=== PATIENT | female | born 1970 | race Two or more races ===

== ENCOUNTER 2016-10-19 11:40 | Emergency (ER) | payer OTHER ==
[2016-10-19 12:06] VITALS: BP 138/84; PULSE 76; TEMP 98; BMI 35.6
--- NOTE | 2016-10-19 14:23 | PDOC ---
History of Present Illness - General Chief Complaint: Eye Problem Stated Complaint: LT EYE SWOLLEN Time Seen by Provider: 10/19/16 13:51 History Source: Patient - History of Present Illness Timing/Duration: other Associated Symptoms: denies: fever/chills, headaches Past History - Past Medical History Allergies/Adverse Reactions: Allergies Allergy/AdvReac Type Severity Reaction Status Date / Time Penicillins Allergy Verified 10/19/16 12:06 Home Medications: Ambulatory Orders Fluconazole [Diflucan -] 100 mg PO DAILY 08/11/15 Insulin Aspart [Novolog] 15 units SQ TID 08/11/15 Insulin Glargine,Hum.rec.anlog [Lantus (10mL VIAL) -] 35 units SQ HS 08/11/15 Aspirin [ASA -] 81 mg PO DAILY tab.chew 08/12/15 Losartan Potassium [Cozaar -] 50 mg PO DAILY 11/12/15 Meclizine HCl [Antivert -] 25 mg PO TID PRN 11/12/15 Sulfamethoxazole/Trimethoprim [Bactrim Ds -] 1 tab PO BID #14 tablet 11/13/15 Levofloxacin [Levaquin -] 500 mg PO DAILY #7 tablet 06/15/16 Sulfamethoxazole/Trimethoprim [Bactrim Ds -] 1 tab PO BID #14 tablet 06/15/16 Nitrofurantoin Monohyd/M-Cryst [Macrobid -] 100 mg PO BID #14 capsule 07/21/16 Dextran 70/Hypromellose [Artificial Tears] 1 - 2 each OS ASDIR PRN #1 droperette 10/19/16 Diphenhydramine HCl [Benadryl -] 25 mg PO Q6H #28 capsule 10/19/16 Asthma: Yes Diabetes: Yes HTN: Yes Hypercholesterolemia: Yes Suicide Attempt (Hx): No - Immunization History Immunization Up to Date: Yes - Psycho/Social/Smoking Cessation Hx Anxiety: No Suicidal Ideation: No Smoking History: Never smoked Have you smoked in the past 12 months: No Number of Cigarettes Smoked Daily: 0 If you are a former smoker, when did you quit?: 3 YEARS Cigars Per Day: 0 Information on smoking cessation initiated: No Hx Alcohol Use: No Drug/Substance Use Hx: No Substance Use Type: None Hx Substance Use Treatment: No Review of Systems - Review of Systems Constitutional: No: Fever HEENTM: No: Eye Pain, Blurred Vision, Tearing, Nose Congestion, Throat Pain Respiratory: No: Cough *Physical Exam - Vital Signs Last Vital Signs Temp Pulse Resp BP Pulse Ox 98 F 76 18 138/84 99 10/19/16 12:02 10/19/16 12:02 10/19/16 12:02 10/19/16 12:02 10/19/16 12:02 - Physical Exam General Appearance: Yes: Appropriately Dressed. No: Apparent Distress HEENT: positive: Normal Voice, Other (minimal periorbital edema without erythema or incr warmth, mild conjunc injection, no gross fb, lid lesions, tearing or discharge) Neck: positive: Supple. negative: Lymphadenopathy (R), Lymphadenopathy (L) Respiratory/Chest: negative: Respiratory Distress Integumentary: positive: Dry, Warm Neurologic: positive: Fully Oriented, Alert, Normal Mood/Affect Medical Decision Making - Medical Decision Making 10/19/16 14:18 46 yo F, h/o NIDDM w/ controlled here with L eyelid periorbital swelling and itching since yesterday. No conjunctival erythema, discharge, tearing or visual changes. No contact lens use. No sick contacts. Using otc eye drops w/ no relief. See exa, Allergic conjuntivitis Has mild conjunctival injection on exam w/ L periorbital edema c/l allergy, no s /o infxn at this time -Dc w/ basic eye care including cool compressess, artificial tears, benadryl and instruction to not rub eyes -Return precaution given 10/19/16 14:29 *DC/Admit/Observation/Transfer Diagnosis at time of Disposition: Allergic conjunctivitis Qualifiers: Laterality: left Qualified Code(s): H10.12 - Acute atopic conjunctivitis, left eye - Discharge Dispostion Disposition: HOME Condition at time of disposition: Good - Prescriptions Prescriptions: Dextran 70/Hypromellose [Artificial Tears] 1 - 2 each OS ASDIR PRN #1 droperette PRN Reason: Dry Eyes Diphenhydramine HCl [Benadryl -] 25 mg PO Q6H #28 capsule - Patient Instructions Printed Discharge Instructions: DI for Conjunctivitis Additional Instructions: Take medications as directed. Return for worsening of symptoms Do not rub eyes as it can worsen symptoms
== END 2016-10-19 14:31 | disposition home or self-care (01) ==
LOC: JERFT 11:40 → EDSEX 11:40 → JERFT 14:31
DX: H10.12 Acute atopic conjunctivitis, left eye (principal); I10 Essential (primary) hypertension; E11.9 Type 2 diabetes mellitus without complications; Z79.4 Long term (current) use of insulin; E78.00 Pure hypercholesterolemia, unspecified; J45.909 Unspecified asthma, uncomplicated
CPT/HCPCS: 99281-25

== ENCOUNTER 2017-01-03 20:04 | Emergency (ER) | payer OTHER ==
[2017-01-03 20:09] VITALS: BP 160/99; BMI 34.3
[2017-01-03] MEDS ORDERED: KETOROLAC TROMETHAMINE 30 MG/1 ML VIAL IVPUSH ONE (20:32)
[2017-01-03] MEDS ORDERED: morphine CARPU-JECT 4 MG/1 ML DISP.SYRIN IVPUSH ONE (20:32)
[2017-01-03] MEDS ORDERED: ONDANSETRON 4 MG/2 ML VIAL IVPUSH ONE (20:32)
[2017-01-03] MEDS ORDERED: KETOROLAC TROMETHAMINE 30 MG/1 ML VIAL ONE (20:36)
[2017-01-03] MEDS ORDERED: ONDANSETRON 4 MG/2 ML VIAL ONE (20:36)
[2017-01-03] MEDS ORDERED: morphine CARPU-JECT 4 MG/1 ML DISP.SYRIN ONE (20:36)
[2017-01-03] MEDS ORDERED: SODIUM CHLORIDE 0.9% 500 ML INFUS.BAG IV ONE (20:37)
--- NOTE | 2017-01-03 20:38 | PDOC ---
History of Present Illness - History of Present Illness Initial Comments: 01/03/17 20:51 Patient is a 46 year old female with significant medical hx of asthma, DM, HTN, and HLD who is presenting to the ED with nausea, suprapubic pain and lower back pain since yesterday. The patient endorses two episodes of vomiting today. Patient is standing uncomfortably over the bed stating she is in too much pain to sit down. The patient suspects she has a UTI; she reports using pyridium in the past without any relief. Denies fever, chills, and hx of nephrolithiasis. <Iliana Nair - Last Filed: 01/03/17 21:31> <Manoj Castro - Last Filed: 01/03/17 22:10> - General Chief Complaint: Pain, Acute Stated Complaint: ABDOMINAL PAIN Past History <Iliana Nair - Last Filed: 01/03/17 21:31> - Past Medical History Asthma: Yes Diabetes: Yes HTN: Yes Hypercholesterolemia: Yes Suicide Attempt (Hx): No - Immunization History Immunization Up to Date: Yes - Psycho/Social/Smoking Cessation Hx Anxiety: No Suicidal Ideation: No Smoking History: Never smoked Have you smoked in the past 12 months: No Number of Cigarettes Smoked Daily: 0 If you are a former smoker, when did you quit?: 3 YEARS Cigars Per Day: 0 Information on smoking cessation initiated: No Hx Alcohol Use: No Drug/Substance Use Hx: No Substance Use Type: None Hx Substance Use Treatment: No <Manoj Castro - Last Filed: 01/03/17 22:10> - Past Medical History Allergies/Adverse Reactions: Allergies Allergy/AdvReac Type Severity Reaction Status Date / Time Penicillins Allergy Verified 01/03/17 20:07 Home Medications: Ambulatory Orders Insulin Aspart [Novolog] 15 units SQ TID 08/11/15 Insulin Glargine,Hum.rec.anlog [Lantus (10mL VIAL) -] 35 units SQ HS 08/11/15 Aspirin [ASA -] 81 mg PO DAILY tab.chew 08/12/15 Losartan Potassium [Cozaar -] 50 mg PO DAILY 11/12/15 Meclizine HCl [Antivert -] 25 mg PO TID PRN 11/12/15 Ibuprofen 800 mg PO TID PRN #30 tablet 01/03/17 Ondansetron [Zofran *Odt*] 8 mg SL TID PRN #30 od.tablet 01/03/17 Sulfamethoxazole/Trimethoprim [Bactrim Ds -] 1 tab PO BID #14 tablet 01/03/17 Review of Systems - Review of Systems Comments:: 01/03/17 20:52 GENERAL/CONSTITUTIONAL: No fever or chills. No weakness. HEAD, EYES, EARS, NOSE AND THROAT: No change in vision. No ear pain or discharge. No sore throat. CARDIOVASCULAR: No chest pain or shortness of breath. RESPIRATORY: No cough, wheezing, or hemoptysis. GASTROINTESTINAL: Suprapubic pain, nasuea, vomiting. No diarrhea or constipation. GENITOURINARY: No dysuria, frequency, or change in urination. MUSCULOSKELETAL: Lower back pain. No joint or muscle swelling or pain. No neck pain. SKIN: No rash NEUROLOGIC: No headache, vertigo, loss of consciousness, or change in strength/ sensation. <Iliana Nair - Last Filed: 01/03/17 21:31> *Physical Exam - Vital Signs Last Vital Signs Temp Pulse Resp BP Pulse Ox 95 H 18 160/99 99 01/03/17 20:07 01/03/17 20:07 01/03/17 20:07 01/03/17 20:07 - Physical Exam Comments: 01/03/17 21:31 GENERAL: Awake, alert, and fully oriented, in no acute distress HEAD: No signs of trauma EYES: PERRLA, EOMI, sclera anicteric, conjunctiva clear ENT: Auricles normal inspection, hearing grossly normal, nares patent, oropharynx clear without exudates. Moist mucosa NECK: Normal ROM, supple, no lymphadenopathy, JVD, or masses LUNGS: Breath sounds equal, clear to auscultation bilaterally. No wheezes, and no crackles HEART: Regular rate and rhythm, normal S1 and S2, no murmurs, rubs or gallops ABDOMEN: No suprapubic tenderness upon palpation. Soft, nontender, normoactive bowel sounds. No guarding, no rebound. No masses EXTREMITIES: Normal range of motion, no edema. No clubbing or cyanosis. No cords, erythema, or tenderness NEUROLOGICAL: Cranial nerves II through XII grossly intact. Normal speech, normal gait SKIN: Warm, Dry, normal turgor, no rashes or lesions noted. ENDOCRINE: No increased thirst. No abnormal weight change. HEMATOLOGIC/LYMPHATIC: No anemia, easy bleeding, or history of blood clots. ALLERGIC/IMMUNOLOGIC: No hives or skin allergy. <Iliana Nair - Last Filed: 01/03/17 21:31> - Vital Signs Last Vital Signs Temp Pulse Resp BP Pulse Ox 95 H 18 160/99 99 01/03/17 20:07 01/03/17 20:07 01/03/17 20:07 01/03/17 20:07 <Manoj Castro - Last Filed: 01/03/17 22:10> ED Treatment Course - LABORATORY CBC & Chemistry Diagram: 01/03/17 20:50 01/03/17 20:50 <Iliana Nair - Last Filed: 01/03/17 21:31> - LABORATORY CBC & Chemistry Diagram: 01/03/17 20:50 01/03/17 20:50 <Manoj Castro - Last Filed: 01/03/17 22:10> Medical Decision Making - Medical Decision Making 01/03/17 22:04 This is a 46yo F with h/o recurrent UTI's who presents with pain in the lower abdomen/suprapubic area which she indicates is identical to her experience with UTI's. No constitutional symptoms are reported and there is significant amount of pain. She is given analgesia, antiemetics, fluids; UTI demonstrated on UA; will send culture. Given Rx for bactrim DS, pyridium, Zofran, and encourage follow up with the urologist for maintenance. <Manoj Castro - Last Filed: 01/03/17 22:10> *DC/Admit/Observation/Transfer - Attestations Scribe Attestion: 01/03/17 20:53 Documentation prepared by Iliana Nair, acting as medical office specialist for Manoj Castro MD. <Iliana Nair - Last Filed: 01/03/17 21:31> - Discharge Dispostion Admit: No Decision to Admit order Date/Time: 01/03/17 22:07 <Manoj Castro - Last Filed: 01/03/17 22:10> Diagnosis at time of Disposition: UTI (urinary tract infection) Qualifiers: Urinary tract infection type: acute cystitis Hematuria presence: with hematuria Qualified Code(s): N30.01 - Acute cystitis with hematuria - Discharge Dispostion Disposition: HOME Condition at time of disposition: Good - Prescriptions Prescriptions: Sulfamethoxazole/Trimethoprim [Bactrim Ds -] 1 tab PO BID #14 tablet Ibuprofen 800 mg PO TID PRN #30 tablet PRN Reason: Pain Ondansetron [Zofran *Odt*] 8 mg SL TID PRN #30 od.tablet PRN Reason: Nausea - Referrals Referrals: STAFF,NOT ON [Primary Care Provider] - - Patient Instructions Additional Instructions: Please follow up with your PMD within the next 24 hours and if there is any change otherwise in your symptoms, please return immediately to the ED. Also, follow up with the urologist would be appropriate as well.
[2017-01-03 20:53] LABS: BASOPHIL 0.7 % (0-2.0); EOSINOPHIL 1.9 % (0-4.5); MCHC 34.4 g/dl (32.0-36.0); MEAN CELL VOLUME 87.3 fl (80-96); MEAN PLT VOLUME 8.7 fl (7.5-11.1); NEUTROPHILS 55.5 % (42.8-82.8); PLATELET COUNT 230 K/MM3 (134-434); RDW 13.9 % (11.6-15.6); WHITE BLOOD COUNT 9.4 K/mm3 (4.0-10.0)
[2017-01-03 21:06] LABS: INR 1.02 (0.82-1.09); PROTHROMBIN TIME (PATIENT) 11.2 SEC (9.98-11.88)
[2017-01-03 21:13] LABS: MAGNESIUM 1.9 mg/dL (1.8-2.4); PHOSPHOROUS 3.2 mg/dL (2.5-4.9)
[2017-01-03 21:14] LABS: ALBUMIN 3.6 g/dl (3.4-5.0); ANION GAP 8 (8-16); BILIRUBIN,TOTAL 0.2 mg/dL (0.2-1.0); CALCIUM 8.5 mg/dL (8.5-10.1); CO2 24 mmol/L (21-32); CREATININE 0.9 mg/dL (0.55-1.02); GLUCOSE,RANDOM 99 mg/dL (74-106); SGOT/AST 30 U/L (15-37); SGPT/ALT 55 U/L (12-78); TOT PROT 7.1 g/dl (6.4-8.2)
[2017-01-03 21:15] LABS: ALK PHOS 112 U/L (45-117)
[2017-01-03 21:19] LABS: URINE APPEARANCE CLOUDY; URINE BILIRUBIN NEGATIVE (NEGATIVE); URINE BLOOD NEGATIVE (NEGATIVE); URINE COLOR LTYELLOW; URINE GLUCOSE (UA) NEGATIVE (NEGATIVE); URINE KETONE NEGATIVE (NEGATIVE); URINE NITRITE NEGATIVE (NEGATIVE); URINE UROBILINOGEN NEGATIVE E.U./dl (0.2-1.0)
[2017-01-03 21:26] LABS: URINE LEUK ESTERASE 3+ (NEGATIVE); URINE PROTEIN 1+ (NEGATIVE)
[2017-01-03 21:33] LABS: URINE BACTERIA RARE /hpf (NONE SEEN); URINE MUCUS RARE; URINE RBC 8 /hpf (0-3); URINE WBC 766 /hpf (3-5); YEAST FEW
[2017-01-03] MEDS ORDERED: SULFAMETHOXAZOLE/TRIMETHOPRIM 800MG/160MG D.S. TABLET PO ONE ×2 (22:03→22:06)
[2017-01-03] MEDS ORDERED: PHENAZOPYRIDINE HCL 100 MG TABLET (FP) PO ONE (22:03)
[2017-01-03] MEDS ORDERED: PHENAZOPYRIDINE HCL 100 MG TABLET (FP) ONE (22:08)
[2017-01-03] MEDS ORDERED: SULFAMETHOXAZOLE/TRIMETHOPRIM 800MG/160MG D.S. TABLET ONE (22:08)
[2017-01-03 22:42] VITALS: PULSE 92
== END 2017-01-03 22:42 | disposition home or self-care (01) ==
LOC: JER 20:04
PROC: 3E033NZ Introduction of Analgesics, Hypnotics, Sedatives into Peripheral Vein, Percutaneous Approach (ICD-10-PCS; principal; 2017-01-03)
PROC: 3E0333Z Introduction of Anti-inflammatory into Peripheral Vein, Percutaneous Approach (ICD-10-PCS; 2017-01-03)
PROC: 3E033GC Introduction of Other Therapeutic Substance into Peripheral Vein, Percutaneous Approach (ICD-10-PCS; 2017-01-03)
DX: N30.01 Acute cystitis with hematuria (principal); I10 Essential (primary) hypertension; E11.9 Type 2 diabetes mellitus without complications; Z79.4 Long term (current) use of insulin; E78.00 Pure hypercholesterolemia, unspecified; J45.909 Unspecified asthma, uncomplicated
CPT/HCPCS: 36415; 80053; 81003; 81015; 83605; 83735; 84100; 84703; 85025; 85610; 87040; 87086; 96374; 96375; 99283-25

== ENCOUNTER 2017-07-13 19:49 | Emergency (ER) | payer OTHER ==
[2017-07-13 20:00] VITALS: BP 160/100; PULSE 129; TEMP 99.2; BMI 39.4
[2017-07-13] MEDS ORDERED: SODIUM CHLORIDE 0.9% 500 ML INFUS.BAG IV ONE (22:02)
[2017-07-13] MEDS ORDERED: LOPERAMIDE HCL 1 MG/5 ML UNIT DOSE CUP PO ONE (22:26)
[2017-07-13] MEDS ORDERED: PANTOPRAZOLE SODIUM 40 MG in SODIUM CHLORIDE 100 ML IVPB ONE (22:26)
[2017-07-13] MEDS ORDERED: MAG HYDROX/AL HYDROX/SIMETH 355 ML ORAL.SUSP PO ONE (22:26)
[2017-07-13] MEDS ORDERED: FAMOTIDINE 20 MG/50 ML IVPB 50 ML IVPB ONE ×2 (22:26→22:39)
[2017-07-13] MEDS ORDERED: ONDANSETRON 4 MG/2 ML VIAL IVPUSH ONE (22:26)
[2017-07-13] MEDS ORDERED: PANTOPRAZOLE SODIUM 100 ML IVPB ONE (22:38)
[2017-07-13 22:39] LABS: BASOPHIL 0.6 % (0-2.0); EOSINOPHIL 0.1 % (0-4.5); MCH 30.8 pg (25.7-33.7); MEAN CELL VOLUME 90.6 fl (80-96); NEUTROPHILS 84.3 % (42.8-82.8); PLATELET COUNT 273 K/MM3 (134-434); RDW 13.2 % (11.6-15.6); WHITE BLOOD COUNT 11.6 K/mm3 (4.0-10.0)
[2017-07-13] MEDS ORDERED: MAG HYDROX/AL HYDROX/SIMETH 30 ML UNIT-DOSE CUP ONE (22:39)
[2017-07-13] MEDS ORDERED: ONDANSETRON 4 MG/2 ML VIAL ONE (22:39)
--- NOTE | 2017-07-13 23:01 | PDOC ---
History of Present Illness - General Chief Complaint: Nausea/Vomiting Stated Complaint: COLD SYMPTOMS Time Seen by Provider: 07/13/17 21:51 - History of Present Illness Initial Comments: 07/13/17 23:01 CHIEF COMPLAINT: HISTORY OF PRESENT ILLNESS: 47 yo F with PMH of asthma, insulin dependent DM, HTN, and HLD presents to ED with vomiting and diarrhea since this morning. Patient reports that she "ate cheese like I do every morning", but shortly after she began vomiting persistently with persistent diarrhea, "I lost count how many times I went after 2 hours." She states that her bowels were like water and her last BM was around 6 pm today. She denies any fever or chills, denies any chest pain or shortness of breath. She reports feeling a "burning" sensation to throat as well as discomfort in the epigastric area. No recent travel or sick contacts. PAST MEDICAL HISTORY: Denies past medical history FAMILY HISTORY: Denies SOCIAL HISTORY: Denies tobacco, alcohol, illicit drug use. SURGICAL HISTORY: Denies ALLERGIES: PCN REVIEW OF SYSTEMS General/Constitutional: Denies fever or chills. Denies weakness, weight change. HEENT: Denies change in vision. Denies ear pain or discharge. Denies sore throat. Cardiovascular: Denies chest pain or shortness of breath. Respiratory: Denies cough, wheezing, or hemoptysis. Gastrointestinal: Denies nausea, vomiting, diarrhea or constipation. Denies rectal bleeding. Genitourinary: Denies dysuria, frequency, or change in urination. Musculoskeletal: Denies joint or muscle swelling or pain. Denies neck or back pain. Skin and breasts: Denies rash or easy bruising. Neurologic: Denies headache, vertigo, loss of consciousness, or loss of sensation. PHYSICAL EXAM General Appearance: Well-appearing, appropriately dressed. No apparent distress , no intoxication. HEENT: EOMI, PERRLA, normal ENT inspection, normal voice, TMs normal, pharynx normal. No conjunctival pallor. No photophobia, scleral icterus. Neck: Supple. Trachea midline. No tenderness, rigidity, carotid bruit, stridor , lymphadenopathy, or thyromegaly. Respiratory/Chest: Lungs CTAB. No shortness of breath, chest tenderness, respiratory distress, accessory muscle use. No crackles, rales, rhonchi, stridor , wheezing, dullness Cardiovascular: RRR. S1, S2. No JVD, murmur, bradycardia, tachycardia. Vascular Pulses: Dorsalis-Pedis (R): 2+, Dorsalis-Pedis (L): 2+ Gastrointestinal/Abdominal: mild epigastric TTP. Normal bowel sounds. Abdomen soft, non-distended. No tenderness or rebound tenderness. No organomegaly, pulsatile mass, guarding, hernia, hepatomegaly, splenomegaly. Lymphatic: No adenopathy, tenderness. Musculoskeletal/Extremities: Normal inspection. FROM of all extremities, normal capillary refill. Pelvis Stable. No CVA tenderness. No tenderness to extremities, pedal edema, swelling, erythema or deformity. Integumentary: Appropriate color, dry, warm. No cyanosis, erythema, jaundice or rash Neurologic: riprap placer II-XII intact. Fully oriented, alert. Appropriate mood/affect. Motor strength 5/5. No appreciable EOM palsy, facial droop or sensory deficit. Past History - Past Medical History Allergies/Adverse Reactions: Allergies Allergy/AdvReac Type Severity Reaction Status Date / Time Penicillins Allergy Verified 07/13/17 19:55 Home Medications: Ambulatory Orders Insulin Aspart [Novolog] 15 units SQ TID 08/11/15 Insulin Glargine,Hum.rec.anlog [Lantus (10mL VIAL) -] 35 units SQ HS 08/11/15 Losartan Potassium [Cozaar -] 50 mg PO DAILY 11/12/15 Meclizine HCl [Antivert -] 25 mg PO TID PRN 11/12/15 Ibuprofen 800 mg PO TID PRN #30 tablet 01/03/17 Salmeterol/Fluticasone [Advair 100Mcg/50Mcg -] 1 inh PO BID 07/13/17 Loperamide HCl/Simethicone [Imodium Multi-Symptom Rel Cplt] 1 each PO BID PRN # 8 tablet 07/14/17 Nitrofurantoin Monohyd/M-Cryst [Macrobid -] 100 mg PO BID #14 capsule 07/14/17 Asthma: Yes Diabetes: Yes HTN: Yes Hypercholesterolemia: Yes - Immunization History Immunization Up to Date: Yes - Suicide/Smoking/Psychosocial Hx Smoking History: Never smoked Have you smoked in the past 12 months: No Number of Cigarettes Smoked Daily: 0 If you are a former smoker, when did you quit?: 3 YEARS Cigars Per Day: 0 Information on smoking cessation initiated: No Hx Alcohol Use: No Drug/Substance Use Hx: No Substance Use Type: None Hx Substance Use Treatment: No *Physical Exam - Vital Signs Last Vital Signs Temp Pulse Resp BP Pulse Ox 99.2 F 129 H 18 160/100 98 07/13/17 19:54 07/13/17 19:54 07/13/17 19:54 07/13/17 19:54 07/13/17 19:54 ED Treatment Course - LABORATORY CBC & Chemistry Diagram: 07/13/17 22:26 07/13/17 22:26 - ADDITIONAL ORDERS Additional order review: 07/13/17 22:26 RBC 5.00 MCV 90.6 MCHC 34.0 RDW 13.2 MPV 9.0 Neutrophils % 84.3 H D Lymphocytes % 11.9 D Monocytes % 3.1 L Eosinophils % 0.1 D Basophils % 0.6 - Medications Given in the ED: ED Medications Discontinued Medications Generic Name Dose Route Start Last Admin Trade Name Nick PRN Reason Stop Dose Admin Al Hydroxide/Mg Hydroxide 30 ml 07/13/17 22:26 07/13/17 22:46 Mylanta Suspension - PO 07/13/17 22:27 30 ml ONCE ONE Administration Pantoprazole Sodium 40 mg/ 100 mls @ 200 mls/hr 07/13/17 22:26 07/13/17 22:47 Sodium Chloride IVPB 07/13/17 22:55 200 mls/hr ONCE ONE Administration Famotidine/Sodium Chloride 50 mls @ 100 mls/hr 07/13/17 22:26 07/13/17 22:47 Pepcid 20 Mg Premixed Ivpb - IVPB 07/13/17 22:55 100 mls/hr ONCE ONE Administration Ondansetron HCl 8 mg 07/13/17 22:26 07/13/17 22:47 Zofran Injection IVPUSH 07/13/17 22:27 8 mg ONCE ONE Administration Sodium Chloride 1,000 ml 07/13/17 22:02 07/13/17 22:35 Normal Saline - IV 07/13/17 22:03 1,000 ml ONCE ONE Administration Medical Decision Making - Medical Decision Making 07/13/17 23:05 47 yo F with PMH of asthma, insulin dependent DM, HTN, and HLD presents to ED with vomiting and diarrhea since this morning. -CBC, CMP, lipase -IVF, NPO, Maalox, loperamide, Pepcid, Protonix *DC/Admit/Observation/Transfer Diagnosis at time of Disposition: UTI (urinary tract infection) Qualifiers: Urinary tract infection type: site unspecified Hematuria presence: with hematuria Qualified Code(s): N39.0 - Urinary tract infection, site not specified - Discharge Dispostion Disposition: HOME Admit: No - Prescriptions Prescriptions: Loperamide HCl/Simethicone [Imodium Multi-Symptom Rel Cplt] 1 each PO BID PRN # 8 tablet PRN Reason: Diarrhea Nitrofurantoin Monohyd/M-Cryst [Macrobid -] 100 mg PO BID #14 capsule - Referrals Referrals: Deandre Saldivar STDNT [Primary Care Provider] - - Patient Instructions Additional Instructions: Please take medications as prescribed and follow up with your primary care doctor by the end of the week. If you develop any fever, chills, or your vomiting and diarrhea persist for more than the next 24 hours, please return to the ER.
[2017-07-13 23:23] LABS: ALBUMIN 3.9 g/dl (3.4-5.0); ALK PHOS 119 U/L (45-117); ANION GAP 10 (8-16); BILIRUBIN,TOTAL 0.6 mg/dL (0.2-1.0); CALCIUM 9.1 mg/dL (8.5-10.1); CO2 22 mmol/L (21-32); CREATININE 0.9 mg/dL (0.55-1.02); GLUCOSE,RANDOM 112 mg/dL (74-106); SGOT/AST 48 U/L (15-37); SGPT/ALT 70 U/L (12-78); TOT PROT 8.3 g/dl (6.4-8.2)
[2017-07-13 23:30] LABS: URINE APPEARANCE CLOUDY; URINE BILIRUBIN NEGATIVE (NEGATIVE); URINE BLOOD 2+ (NEGATIVE); URINE COLOR YELLOW; URINE GLUCOSE (UA) NEGATIVE (NEGATIVE); URINE KETONE NEGATIVE (NEGATIVE); URINE NITRITE POSITIVE (NEGATIVE); URINE PROTEIN NEGATIVE (NEGATIVE); URINE UROBILINOGEN NEGATIVE mg/dL (0.2-1.0)
[2017-07-13 23:34] LABS: URINE LEUK ESTERASE 3+ (NEGATIVE)
[2017-07-13 23:36] LABS: URINE MUCUS RARE; URINE RBC 6 /hpf (0-3); URINE WBC 209 /hpf (3-5)
[2017-07-13] MEDS ORDERED: CIPROFLOXACIN 400 MG/D5W 200 ML IVPB ONE (23:54)
== END 2017-07-14 02:45 | disposition home or self-care (01) ==
LOC: JER 19:49
PROC: 3E033GC Introduction of Other Therapeutic Substance into Peripheral Vein, Percutaneous Approach (ICD-10-PCS; principal; 2017-07-13)
PROC: 3E033GC Introduction of Other Therapeutic Substance into Peripheral Vein, Percutaneous Approach (ICD-10-PCS; 2017-07-13)
PROC: 3E03329 Introduction of Other Anti-infective into Peripheral Vein, Percutaneous Approach (ICD-10-PCS; 2017-07-13)
PROC: 3E033GC Introduction of Other Therapeutic Substance into Peripheral Vein, Percutaneous Approach (ICD-10-PCS; 2017-07-13)
DX: N39.0 Urinary tract infection, site not specified (principal); B96.89 Other specified bacterial agents as the cause of diseases classified elsewhere; I10 Essential (primary) hypertension; E78.00 Pure hypercholesterolemia, unspecified; E10.9 Type 1 diabetes mellitus without complications; Z79.4 Long term (current) use of insulin; J45.909 Unspecified asthma, uncomplicated
CPT/HCPCS: 36415; 80053; 81003; 81015; 83605; 83690; 84703; 85025; 87086; 87186; 99283-25

== ENCOUNTER → 2017-10-22 | Emergency (ER) | payer OTHER ==
[~2017-10-22] MED LIST: ACETAMINOPHEN 325 MG TABLET (FP) ONE; ACETAMINOPHEN 325 MG TABLET (FP) PO ONE; MECLIZINE HCL 25 MG TABLET (FP) ONE; MECLIZINE HCL 25 MG TABLET (FP) PO ONE
[2017-10-22 20:58] VITALS: BP 155/112; PULSE 90; TEMP 97.6; BMI 36.6
--- NOTE | 2017-10-22 20:59 | PDOC ---
Rapid Medical Evaluation Chief Complaint: Injury Time Seen by Provider: 10/22/17 20:57 Medical Evaluation: Allergies Allergy/AdvReac Type Severity Reaction Status Date / Time Penicillins Allergy Verified 07/13/17 19:55 Vital Signs Temp Pulse Resp BP Pulse Ox 97.6 F 90 18 155/112 99 10/22/17 20:55 10/22/17 20:55 10/22/17 20:55 10/22/17 20:55 10/22/17 20:55 10/22/17 20:58 I have performed a brief in -person evaluation of this patient. The patient presents with a chief complaint of: S/P SLIPPED AND FELL X3D AGO. C/ O paravertebral neck/right wrist pain. Denies preg. refuses upreg Pertinent physical exam findings: neg midline neck pain I have ordered the following: xray right wrist/c spine The patient will proceed to the ED for further evaluation. 10/22/17 20:59
--- NOTE | 2017-10-23 00:02 | PDOC ---
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 Pt states she had an episode of vertigo and confusion and then fell. She remembers landing on her hands and then blacked out. On waking, she had pain in her right wrist, the right side of her head, and admits to having lost bladder control and briefly seeing double. Over the last 2 days, pt has been effectively controlling the pain with Motrin (up to 10/day). She currently does not have any numbness, tingling, nausea, vomiting, diarrhea, chest pain, sob, abd pain. Past History - Past Medical History Allergies/Adverse Reactions: Allergies Allergy/AdvReac Type Severity Reaction Status Date / Time Penicillins Allergy Verified 07/13/17 19:55 Home Medications: Ambulatory Orders Insulin Aspart [Novolog] 15 units SQ TID 08/11/15 Insulin Glargine,Hum.rec.anlog [Lantus (10mL VIAL) -] 35 units SQ HS 08/11/15 Losartan Potassium [Cozaar -] 50 mg PO DAILY 11/12/15 Meclizine HCl [Antivert -] 25 mg PO TID PRN 11/12/15 Salmeterol/Fluticasone [Advair 100Mcg/50Mcg -] 1 inh PO BID 07/13/17 Loperamide HCl/Simethicone [Imodium Multi-Symptom Rel Cplt] 1 each PO BID PRN # 8 tablet 07/14/17 Asthma: Yes COPD: No Diabetes: Yes HTN: Yes Hypercholesterolemia: Yes - Immunization History Immunization Up to Date: Yes - Suicide/Smoking/Psychosocial Hx Smoking History: Never smoked Have you smoked in the past 12 months: No Number of Cigarettes Smoked Daily: 0 If you are a former smoker, when did you quit?: 3 YEARS Cigars Per Day: 0 Hx Alcohol Use: No Drug/Substance Use Hx: No Substance Use Type: None Hx Substance Use Treatment: No Review of Systems - Review of Systems Able to Perform ROS?: Yes Is the patient limited Wolof proficient: No Constitutional: Yes: Symptoms Reported. No: Diaphoresis, Fever, Loss of Appetite HEENTM: Yes: Symptoms Reported, Double Vision (briefly following the fall). No : Eye Pain, Blurred Vision, Tearing Respiratory: Yes: Symptoms reported. No: Cough, Orthopnea Cardiac (ROS): Yes: Symptoms Reported. No: Chest Pain, Edema, Irregular Heart Rate ABD/GI: Yes: Symptoms Reported. No: Abdominal Distended, Constipated, Diarrhea : Yes: Symptoms Reported. No: Burning, Dysuria, Discharge Musculoskeletal: Yes: Symptoms Reported, Joint Pain (right wrist), Joint Swelling (right wrist. Now resolved). No: Back Pain Neurological: Yes: Symptoms reported, Numbness (right hand. now resolved.). No : Headache Psychiatric: Yes: Anxiety, Depression, Emotional Problems, Other (panic attacks) *Physical Exam - Vital Signs Last Vital Signs Temp Pulse Resp BP Pulse Ox 97.6 F 90 18 155/112 99 10/22/17 20:55 10/22/17 20:55 10/22/17 20:55 10/22/17 20:55 10/22/17 20:55 - Physical Exam General Appearance: Yes: Nourished, Appropriately Dressed, Obese. No: Apparent Distress, Disheveled, Alcohol on Breath, Intoxicated HEENT: positive: EOMI, ARLIN, Normal ENT Inspection, Other (tenderness to palpation on vague region of posterior head/neck) Neck: positive: Supple. negative: Tender Respiratory/Chest: positive: Lungs Clear, Normal Breath Sounds. negative: Chest Tender Cardiovascular: positive: Regular Rhythm, Regular Rate, S1, S2 Gastrointestinal/Abdominal: positive: Normal Bowel Sounds, Flat, Soft. negative : Tender Musculoskeletal: positive: Normal Inspection Extremity: positive: Normal Capillary Refill, Normal Inspection, Normal Range of Motion, Tender (very mild tenderness of the right mid forearm. Wrist intact without deformity. Normal ROM active and passive. neurovascularly intact.) Neurologic: positive: Fully Oriented, Alert, Normal Mood/Affect. negative: Numbness, Sensory Deficit ED Treatment Course - LABORATORY CBC & Chemistry Diagram: 10/23/17 00:20 10/23/17 00:20 Medical Decision Making - Medical Decision Making 10/23/17 00:32 Pt is a 47 y/o F w/ PMH vertigo who came to ED after having an episode of vertigo and falling 2 days ago. Pt complains of R wrist and right-sided head pain. Plan -Head CT -C-spine XR -R wrist XR -CBC -CMP 10/23/17 01:15 CBC & CMP unremarkable 10/23/17 02:02 Imaging transmission superintendent reports for Head CT and C-spine CT benign *DC/Admit/Observation/Transfer - Referrals Referrals: STAFF,NOT ON [Primary Care Provider] - - Patient Instructions - Post Discharge Activity
[2017-10-23 00:34] LABS: BASO % 0.4 % (0-2.0); HEMATOCRIT 42.7 % (32.4-45.2); HEMOGLOBIN 14.4 GM/dL (10.7-15.3); LYMPH % 33.2 % (8-40); MCH 29.7 pg (25.7-33.7); MCHC 33.6 g/dl (32.0-36.0); MEAN CELL VOLUME 88.3 fl (80-96); MEAN PLT VOLUME 9.2 fl (7.5-11.1); MONO % 10.3 % (3.8-10.2); NEUT % 53.1 % (42.8-82.8); PLATELET COUNT 246 K/MM3 (134-434); RBC 4.84 M/mm3 (3.60-5.2); RDW 13.1 % (11.6-15.6); WHITE BLOOD COUNT 8.6 K/mm3 (4.0-10.0)
[2017-10-23 01:16] LABS: ALBUMIN 3.6 g/dl (3.4-5.0); ANION GAP 12 (8-16); BILIRUBIN,TOTAL 0.4 mg/dL (0.2-1.0); BLOOD UREA NITROGEN 7 mg/dL (7-18); CHLORIDE 106 mmol/L (98-107); CO2 22 mmol/L (21-32); CREATININE 0.8 mg/dL (0.55-1.02); GLUCOSE,RANDOM 100 mg/dL (74-106); POTASSIUM 3.9 mmol/L (3.5-5.1); SGOT/AST 28 U/L (15-37); SGPT/ALT 43 U/L (12-78); SODIUM 140 mmol/L (136-145); TOT PROT 7.7 g/dl (6.4-8.2)
[2017-10-23 01:17] LABS: ALK PHOS 119 U/L (45-117)
--- NOTE | 2017-10-23 02:01 | PDOC ---
Attending Attestation - Resident Resident Name: Edward Lay - ED Attending Attestation I have performed the following: The case was reviewed & discussed with the resident, I agree w/resident's findings & plan - HPI HPI: 10/23/17 02:00 Pt comes with vertiginous fall - Physicial Exam PE: 10/23/17 02:00 Agree with resident exam - Medical Decision Making 10/23/17 02:00 Patient Name: TESSA COHEN THIS IS A PRELIMINARY REPORT FROM [facility] DATE OF SERVICE: 2017-10-23 00:42:14 IMAGES: [id number] EXAM: CT CERVICAL SPINE without vascular contrast HISTORY: Trauma and pain COMPARISON: None. FINDINGS: Vertebral bodies appear normal with no fracture Vertebral bodies are normally aligned Airway is intact Soft Tissues are normal Pulmonary apices are normal IMPRESSION: No cervical spine fracture THIS DOCUMENT HAS BEEN ELECTRONICALLY SIGNED 10/23/17 02:02 Patient Name: TESSA COHEN THIS IS A PRELIMINARY REPORT FROM [facility]ING [facility]PER[facility] DATE OF SERVICE: 2017-10-23 00:29:38 IMAGES: 149 EXAM: CT HEAD without contrast HISTORY: Trauma COMPARISON: None. FINDINGS: Brain parenchyma is normal in attenuation with no mass or hematoma. There is no midline shift. Shields and white matter differentiation is normal. Ventricles are normal. Sulci and extra-axial CSF spaces are normal. Intracranial vascular structures are normal in attenuation. There is no calvarial fracture. Paranasal sinuses are normally aerated. IMPRESSION: Normal head THIS DOCUMENT HAS BEEN ELECTRONICALLY SIGNED 10/23/17 20:23 Pt felt better and walked out of the ER. Diagnosis: headache and dizziness resolved. Pt eloped.
== END | disposition left against medical advice (07) ==
LOC: JER 20:47 → JERFT 20:47
DX: S09.8XXA Other specified injuries of head, initial encounter (principal); W18.39XA Other fall on same level, initial encounter; Y93.89 Activity, other specified; Y92.038 Other place in apartment as the place of occurrence of the external cause; I10 Essential (primary) hypertension; E11.9 Type 2 diabetes mellitus without complications; Z79.4 Long term (current) use of insulin; E78.5 Hyperlipidemia, unspecified; F32.9 Major depressive disorder, single episode, unspecified
CPT/HCPCS: 36415; 70450-TC; 72125-TC; 73110-TC-RT; 80053; 82550; 82553; 84484; 85025; 99282-25

== ENCOUNTER 2018-01-27 19:46 | Emergency (ER) | payer OTHER ==
--- NOTE | 2018-01-27 19:52 | PDOC ---
Rapid Medical Evaluation Time Seen by Provider: 01/27/18 19:51 Medical Evaluation: Allergies Allergy/AdvReac Type Severity Reaction Status Date / Time Penicillins Allergy Verified 07/13/17 19:55 01/27/18 19:51 I have performed a brief in-person evaluation of this patient. The patient presents with a chief complaint of: headache since yesterday, + nausea/vomiting, LMP last week Pertinent physical exam findings: no focal neuro deficits I have ordered the following: urine preg The patient will proceed to the ED for further evaluation. Discharge Disposition - Diagnosis Headache - Referrals - Patient Instructions - Post Discharge Activity
[2018-01-27 19:54] VITALS: BMI 40.5
--- NOTE | 2018-01-27 20:19 | PDOC ---
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 Patient reports waking up this morning experiencing episode of migraine that she states has been chronic since beginning. She reports migraine is all throughout her head and does not stay localized to any one area. Patient states she was taken off of her meningitis medication 3 months ago and is worried it is related to her current symptoms. Denies chest pain, Sob. Denies nausea, vomiting. Denies photophobia. Denies contact with sick individuals, out of state traveling. Denies any other symptoms. Allergies: Penicillins. Social history: No smoking. No alcohol. No illicit drugs. Surgical history: breast augmentation, hysterectomy PMD: Not on staff. <Scout Connor - Last Filed: 01/27/18 21:41>
[2018-01-27] MEDS ORDERED: METOCLOPRAMIDE HCL INJECTION 10 MG/2 ML VIAL IVPUSH ONE (20:20)
[2018-01-27] MEDS ORDERED: SODIUM CHLORIDE 1,000 ML IV STA (20:20)
[2018-01-27] MEDS ORDERED: METOCLOPRAMIDE HCL INJECTION 10 MG/2 ML VIAL ONE (20:23)
--- NOTE | 2018-01-27 20:40 | PDOC ---
History of Present Illness - General Chief Complaint: Migraine Headache Stated Complaint: MIGRAINE Time Seen by Provider: 01/27/18 19:51 - History of Present Illness Initial Comments: 01/27/18 20:22 Ms. Bowden is a 47 yo woman w/ pmh of vertigo, depression, panic attacks, HTN, DM, asthma, breast augmentation, hysterectomy, meningitis (2005, on fluconazole until 3 months ago) who presents complaining of 1 day history of severe headache with occasional PMH Vertigo, Depression, Panic attacks, deperession, HTN, DM, HLP, asthma, breast aumentation, hysterectomy, meningitis (2005 on lifelong fluconazole) Past History - Past Medical History Allergies/Adverse Reactions: Allergies Allergy/AdvReac Type Severity Reaction Status Date / Time Penicillins Allergy Verified 01/27/18 19:54 Home Medications: Ambulatory Orders Insulin Aspart [Novolog] 15 units SQ TID 08/11/15 Insulin Glargine,Hum.rec.anlog [Lantus (10mL VIAL) -] 35 units SQ HS 08/11/15 Losartan Potassium [Cozaar -] 50 mg PO DAILY 11/12/15 Meclizine HCl [Antivert -] 25 mg PO TID PRN 11/12/15 Salmeterol/Fluticasone [Advair 100Mcg/50Mcg -] 1 inh PO BID 07/13/17 Loperamide HCl/Simethicone [Imodium Multi-Symptom Rel Cplt] 1 each PO BID PRN # 8 tablet 07/14/17 Asthma: Yes COPD: No Diabetes: Yes HTN: Yes Hypercholesterolemia: Yes Other medical history: menegitis 2006 - Immunization History Immunization Up to Date: Yes - Suicide/Smoking/Psychosocial Hx Smoking History: Never smoked Have you smoked in the past 12 months: No Number of Cigarettes Smoked Daily: 0 If you are a former smoker, when did you quit?: 3 YEARS Cigars Per Day: 0 Hx Alcohol Use: No Drug/Substance Use Hx: No Substance Use Type: None Hx Substance Use Treatment: No *Physical Exam - Vital Signs Last Vital Signs Temp Pulse Resp BP Pulse Ox 99.8 F H 101 H 20 155/106 100 01/27/18 19:51 01/27/18 19:51 01/27/18 19:51 01/27/18 19:51 01/27/18 19:51 Medical Decision Making - Medical Decision Making 01/27/18 22:08 Ms. Bowden is a 47 yo woman w/ pmh as described who presents for evaluation of headache. Patient reports relief following 1L NS and metoclopramide. Tylenol given for further relief. Upreg negative. UA pending. 01/27/18 22:29 UA grossly wnl as below. Patient reporting relief from symptoms. Discharging to home. Laboratory Results - last 24 hr 01/27/18 21:45 Urine Color Yellow Urine Appearance Clear Urine pH 6.0 Ur Specific [place] 1.013 Urine Protein Negative Urine Glucose (UA) Negative Urine Ketones Negative Urine Blood Negative Urine Nitrite Negative Urine Bilirubin Negative Urine Urobilinogen Negative Ur Leukocyte Esterase Trace Urine WBC (Auto) 7 Urine RBC (Auto) <1 Ur Epithelial Cells Rare Urine Mucus Rare Urine HCG, Qual Negative *DC/Admit/Observation/Transfer Diagnosis at time of Disposition: Headache Qualifiers: Headache type: unspecified Headache chronicity pattern: unspecified pattern Intractability: not intractable Qualified Code(s): R51 - Headache - Discharge Dispostion Disposition: HOME - Referrals Referrals: ON STAFF,NOT [Primary Care Provider] - - Patient Instructions Printed Discharge Instructions: DI for Headache Additional Instructions: Please return if any return or increase in headache pain, fever, chills, or other concerning symptoms. Follow-up with primary care provider as needed for any further non-emergent care needs. - Post Discharge Activity
[2018-01-27 21:54] LABS: HCG,QUALITATIVE URINE NEGATIVE
[2018-01-27 21:59] LABS: URINE APPEARANCE CLEAR; URINE BILIRUBIN NEGATIVE (<2.0 mg/dL); URINE BLOOD NEGATIVE (NEGATIVE); URINE COLOR YELLOW; URINE GLUCOSE (UA) NEGATIVE (NEGATIVE); URINE KETONE NEGATIVE (NEGATIVE); URINE LEUK ESTERASE TRACE (NEGATIVE); URINE NITRITE NEGATIVE (NEGATIVE); URINE PROTEIN NEGATIVE (NEGATIVE); URINE UROBILINOGEN NEGATIVE mg/dL (0.2-1.0)
[2018-01-27] MEDS ORDERED: ACETAMINOPHEN 325 MG TABLET (FP) PO ONE (22:07)
[2018-01-27] MEDS ORDERED: ACETAMINOPHEN 325 MG TABLET (FP) ONE (22:11)
[2018-01-27 22:13] LABS: EPI CELLS RARE /HPF (FEW); URINE MUCUS RARE
[2018-01-27 22:57] VITALS: BP 148/95; PULSE 79; TEMP 98.1
== END 2018-01-27 22:54 | disposition home or self-care (01) ==
LOC: JER 19:46
PROC: 3E033GC Introduction of Other Therapeutic Substance into Peripheral Vein, Percutaneous Approach (ICD-10-PCS; principal; 2018-01-27)
DX: R51 Headache (principal); I10 Essential (primary) hypertension; F32.9 Major depressive disorder, single episode, unspecified; E78.5 Hyperlipidemia, unspecified; E11.9 Type 2 diabetes mellitus without complications; R42 Dizziness and giddiness; F41.0 Panic disorder [episodic paroxysmal anxiety]; Z86.69 Personal history of other diseases of the nervous system and sense organs; Z79.2 Long term (current) use of antibiotics; Z88.0 Allergy status to penicillin
CPT/HCPCS: 81003; 81015; 84703; 99282-25; J7030

== ENCOUNTER 2018-04-09 17:57 | Emergency (ER) | payer OTHER ==
[2018-04-09 18:06] VITALS: BP 134/83; PULSE 73; TEMP 98.4; BMI 41.1
[2018-04-09] MEDS ORDERED: TOBRAMYCIN 0.3% OPHTH SOLN 5 ML BOTTLE OD ONE ×2 (18:11→18:16)
--- NOTE | 2018-04-09 18:17 | PDOC ---
History of Present Illness - General Chief Complaint: Eye Problem Stated Complaint: EYE PAIN Time Seen by Provider: 04/09/18 18:04 History Source: Patient Exam Limitations: No Limitations - History of Present Illness Initial Comments: 04/09/18 18:25 Onset of itching and draining eyes since yesterday. States has turned [place] in feeling and drainage has become thick yellowish. Eyes red. Has no children at home no known exposure to conjunctivitis the patient suffers from diabetes. Visual acuity is unchanged. used Some [id number] lubricating drops but had no resolved. Timing/Duration: 24 hours Severity: mild, moderate Associated Symptoms: reports: denies symptoms Past History - Travel Traveled outside of the country in the last 30 days: No Close contact w/someone who was outside of country & ill: No - Past Medical History Allergies/Adverse Reactions: Allergies Allergy/AdvReac Type Severity Reaction Status Date / Time Penicillins Allergy Verified 04/09/18 18:03 Home Medications: Ambulatory Orders Insulin Aspart [Novolog] 15 units SQ TID 08/11/15 Insulin Glargine,Hum.rec.anlog [Lantus (10mL VIAL) -] 35 units SQ HS 08/11/15 Losartan Potassium [Cozaar -] 50 mg PO DAILY 11/12/15 Meclizine HCl [Antivert -] 25 mg PO TID PRN 11/12/15 Salmeterol/Fluticasone [Advair 100Mcg/50Mcg -] 1 inh PO BID 07/13/17 Loperamide HCl/Simethicone [Imodium Multi-Symptom Rel Cplt] 1 each PO BID PRN # 8 tablet 07/14/17 Tobramycin 0.3% Ophth Soln [Tobrex Ophthalmic Solution -] 2 drop OS QID #1 drops 04/09/18 Asthma: Yes COPD: No Dementia: No Diabetes: Yes HTN: Yes Hypercholesterolemia: Yes - Immunization History Immunization Up to Date: Yes - Suicide/Smoking/Psychosocial Hx Smoking History: Never smoked Have you smoked in the past 12 months: No Number of Cigarettes Smoked Daily: 0 If you are a former smoker, when did you quit?: 3 YEARS Cigars Per Day: 0 Information on smoking cessation initiated: No Hx Alcohol Use: No Drug/Substance Use Hx: No Substance Use Type: None Hx Substance Use Treatment: No Review of Systems - Review of Systems Able to Perform ROS?: Yes Is the patient limited Finnish proficient: Yes Constitutional: Yes: Symptoms Reported, See HPI, Malaise. No: Fever HEENTM: Yes: Symptoms Reported, See HPI, Eye Pain, Tearing (drainage) Respiratory: Yes: See HPI, Cough All Other Systems: Reviewed and Negative *Physical Exam - Vital Signs Last Vital Signs Temp Pulse Resp BP Pulse Ox 98.4 F 73 16 134/83 97 04/09/18 18:04 04/09/18 18:04 04/09/18 18:04 04/09/18 18:04 04/09/18 18:04 - Physical Exam General Appearance: Yes: Nourished, Appropriately Dressed, Apparent Distress, Mild Distress HEENT: positive: EOMI, ARLIN, TMs Normal, Pharynx Normal, Other (erythematous). negative: Normal ENT Inspection Neck: positive: Supple. negative: Tender, Lymphadenopathy (R), Lymphadenopathy (L) Respiratory/Chest: positive: Lungs Clear, Normal Breath Sounds Cardiovascular: positive: Regular Rate Gastrointestinal/Abdominal: positive: Soft. negative: Tender Musculoskeletal: positive: Normal Inspection Extremity: positive: Normal Capillary Refill, Normal Inspection Integumentary: positive: Normal Color, Dry, Warm Neurologic: positive: principal research economist II-XII NML intact, Fully Oriented, Alert, Normal Mood/ Affect, Normal Response, Motor Strength 5/5 *DC/Admit/Observation/Transfer Diagnosis at time of Disposition: Acute bacterial conjunctivitis of left eye - Discharge Dispostion Disposition: HOME Condition at time of disposition: Stable Decision to Admit order: No - Referrals - Patient Instructions Printed Discharge Instructions: DI for Conjunctivitis Additional Instructions: Rest, avoid rubbing eyes Wash hands frequently as this is very contagious Wash hands, use eye drops as directed, wash hands after use Do not share eyedrops with other person to may become infected as this will infect them Tobramycin drops 2 drops to affected eye 4 times a day for 5 days Avoid contact with others until redness and discharge is gone from eyes. Followup with ophthalmology or private physician as needed - Post Discharge Activity Forms/Work/School Notes: Back to Work
[2018-04-09] MEDS ORDERED: TOBRAMYCIN 0.3% OPHTH SOLN 5 ML BOTTLE ONE (18:18)
== END 2018-04-09 18:50 | disposition home or self-care (01) ==
LOC: JERFT 17:57
DX: H10.32 Unspecified acute conjunctivitis, left eye (principal); B96.89 Other specified bacterial agents as the cause of diseases classified elsewhere
CPT/HCPCS: 99281-25

== ENCOUNTER 2019-03-15 21:09 | Inpatient (IN) | payer OTHER ==
--- NOTE | 2019-03-15 21:16 | PDOC ---
Rapid Medical Evaluation Time Seen by Provider: 03/15/19 21:14 Medical Evaluation: Allergies Allergy/AdvReac Type Severity Reaction Status Date / Time Penicillins Allergy Verified 04/09/18 18:03 03/15/19 21:14 I have performed a brief in-person evaluation of this patient. The patient presents with a chief complaint of: lower abdominal pain and frequency Pertinent physical exam findings: suprapubic tenderness I have ordered the following: urine, labs The patient will proceed to the ED for further evaluation. Discharge Disposition - Diagnosis Dysuria - Referrals - Patient Instructions - Post Discharge Activity
--- NOTE | 2019-03-15 22:41 | PDOC ---
History of Present Illness - General Chief Complaint: Urinary Problem Stated Complaint: ABDOMINAL PAIN Time Seen by Provider: 03/15/19 21:14 History Source: Patient - History of Present Illness Initial Comments: 03/15/19 23:23 49 year old complaining ofFrequency urination, burning on urination with suprapubic pain and left flank pain. Patient reports feeling chills. Patient completed one course of Bactrim and started Bactrim again prescribed by PCP. Denies nausea, vomiting, abdominal pain. Denies chest pain.no recent sexual partners 03/15/19 23:42 Past History - Past Medical History Allergies/Adverse Reactions: Allergies Allergy/AdvReac Type Severity Reaction Status Date / Time Penicillins Allergy Verified 03/15/19 21:14 Home Medications: Ambulatory Orders Insulin Aspart [Novolog] 15 units SQ TID 08/11/15 Insulin Glargine,Hum.rec.anlog [Lantus (10mL VIAL) -] 35 units SQ HS 08/11/15 Losartan Potassium [Cozaar -] 50 mg PO DAILY 11/12/15 Meclizine HCl [Antivert -] 25 mg PO TID PRN 11/12/15 Salmeterol/Fluticasone [Advair 100Mcg/50Mcg -] 1 inh PO BID 07/13/17 Loperamide HCl/Simethicone [Imodium Multi-Symptom Rel Cplt] 1 each PO BID PRN # 8 tablet 07/14/17 Tobramycin 0.3% Ophth Soln [Tobrex Ophthalmic Solution -] 2 drop OS QID #1 drops 04/09/18 Asthma: Yes COPD: No Dementia: No Diabetes: Yes HTN: Yes Hypercholesterolemia: Yes - Immunization History Immunization Up to Date: Yes - Suicide/Smoking/Psychosocial Hx Smoking History: Never smoked Have you smoked in the past 12 months: No Number of Cigarettes Smoked Daily: 0 If you are a former smoker, when did you quit?: 3 YEARS Cigars Per Day: 0 Hx Alcohol Use: No Drug/Substance Use Hx: No Substance Use Type: None Hx Substance Use Treatment: No Review of Systems - Review of Systems Able to Perform ROS?: Yes Is the patient limited Moldovan proficient: No Constitutional: Yes: Chills : Yes: Dysuria, Frequency, Flank Pain Musculoskeletal: No: Symptoms Reported, See HPI, Back Pain, Gout, Joint Pain, Joint Swelling, Muscle Pain, Muscle Weakness, Neck Pain, Joint Stiffness, Other *Physical Exam - Vital Signs Last Vital Signs Temp Pulse Resp BP Pulse Ox 97.8 F 105 H 18 170/99 95 03/15/19 21:12 03/15/19 21:12 03/15/19 21:12 03/15/19 21:12 03/15/19 21:12 - Physical Exam General Appearance: Yes: Appropriately Dressed Respiratory/Chest: positive: Lungs Clear, Normal Breath Sounds Gastrointestinal/Abdominal: positive: Normal Bowel Sounds, Tender (suprapubic area), Soft Musculoskeletal: positive: Normal Inspection, CVA Tenderness (L) Extremity: positive: Normal Capillary Refill, Normal Inspection, Normal Range of Motion Integumentary: positive: Normal Color, Dry, Warm Neurologic: positive: Fully Oriented, Alert, Normal Mood/Affect ED Treatment Course - LABORATORY CBC & Chemistry Diagram: 03/15/19 23:10 03/15/19 23:10 Progress Note - Progress Note Progress Note: A: pyelonephritis P: blood culture cbc cmp Blood glucose > 500 ua urine culture patient to be admitted under hospitalist service signed out to Dr. Almanza/ dr reid *DC/Admit/Observation/Transfer Diagnosis at time of Disposition: Pyelonephritis - Discharge Dispostion Decision to Admit order: Yes - Referrals Referrals: ON STAFF,NOT [Primary Care Provider] - - Patient Instructions - Post Discharge Activity
[2019-03-15 23:04] LABS: HCG,QUALITATIVE URINE Negative; URINE APPEARANCE CLEAR; URINE BILIRUBIN NEGATIVE (NEGATIVE); URINE COLOR YELLOW; URINE GLUCOSE (UA) 3+ (NEGATIVE); URINE KETONE NEGATIVE (NEGATIVE); URINE LEUK ESTERASE 1+ (NEGATIVE); URINE NITRITE NEGATIVE (NEGATIVE); URINE PROTEIN NEGATIVE (NEGATIVE); URINE UROBILINOGEN 0.2 mg/dL (0.2-1.0)
[2019-03-15] MEDS ORDERED: ACETAMINOPHEN INJECTION 100 ML IVPB ONE (23:14)
[2019-03-15] MEDS ORDERED: ACETAMINOPHEN 1000 MG/100 ML VIAL (NON FORMULARY) IVPB ONE (23:16)
[2019-03-15 23:18] LABS: BASO % 1.3 % (0-2.0); EOS % 2.2 % (0-4.5); HEMATOCRIT 41.8 % (32.4-45.2); MCH 29.9 pg (25.7-33.7); MCHC 33.6 g/dl (32.0-36.0); MEAN PLT VOLUME 9.5 fl (7.5-11.1); MONO % 8.9 % (3.8-10.2); NEUT % 48.6 % (42.8-82.8); PLATELET COUNT 220 K/MM3 (134-434); RDW 13.4 % (11.6-15.6); WHITE BLOOD COUNT 6.7 K/mm3 (4.0-10.0)
[2019-03-15 23:40] LABS: EPI CELLS 0.2 /HPF (0-5/HPF); URINE RBC 12.9 /hpf (0-4); URINE WBC 151.1 /hpf (0-5)
[2019-03-15 23:40] LABS: ALBUMIN 3.8 g/dl (3.4-5.0); BILIRUBIN,TOTAL 0.4 mg/dL (0.2-1); CALCIUM 8.9 mg/dL (8.5-10.1); CREATININE 1.3 mg/dL (0.55-1.3); POTASSIUM 4.3 mmol/L (3.5-5.1); TOT PROT 7.9 g/dl (6.4-8.2)
--- NOTE | 2019-03-15 23:40 | PDOC ---
*Physical Exam - Vital Signs Last Vital Signs Temp Pulse Resp BP Pulse Ox 97.8 F 105 H 18 170/99 95 03/15/19 21:12 03/15/19 21:12 03/15/19 21:12 03/15/19 21:12 03/15/19 21:12 ED Treatment Course - LABORATORY CBC & Chemistry Diagram: 03/15/19 23:10 03/15/19 23:10 - ADDITIONAL ORDERS Additional order review: Laboratory Results 03/15/19 22:50 Urine HCG, Qual Negative 03/15/19 23:10 RBC 4.70 MCV 89.0 MCHC 33.6 RDW 13.4 MPV 9.5 Neutrophils % 48.6 Lymphocytes % 39.0 Monocytes % 8.9 Eosinophils % 2.2 Basophils % 1.3 D - Medications Given in the ED: ED Medications Discontinued Medications Generic Name Dose Route Start Last Admin Trade Name Freq PRN Reason Stop Dose Admin Acetaminophen 1,000 mg 03/15/19 23:16 03/15/19 23:19 Ofirmev Injection - IVPB 03/15/19 23:17 1,000 mg ONCE ONE Administration *DC/Admit/Observation/Transfer Diagnosis at time of Disposition: Dysuria - Referrals Referrals: ON STAFF,NOT [Primary Care Provider] - - Patient Instructions - Post Discharge Activity
[2019-03-15 23:41] LABS: URINE BACTERIA 38.8 /hpf (NEGATIVE)
[2019-03-15] MEDS ORDERED: SODIUM CHLORIDE 1,000 ML IV STA (23:50)
[2019-03-16] MEDS ORDERED: AZTREONAM 1 GM in DEXTROSE 5%-WATER - 50 ML IVPB ONE (00:04)
[2019-03-16] MEDS ORDERED: AZTREONAM 1 GM VIAL (RESTRICTED TO ID) ONE ×2 (01:04→09:17)
[2019-03-16 01:36] LABS: CALCIUM 9.2 mg/dL (8.5-10.1); CREATININE 1.3 mg/dL (0.55-1.3); POTASSIUM 4.3 mmol/L (3.5-5.1)
[2019-03-16] MEDS ORDERED: INSULIN (NOVOLOG) ASPART 100 UNITS/ML 10ML VIAL SQ ONE (01:59)
[2019-03-16] MEDS ORDERED: traMADol HCL 50 MG TABLET PO ONE ×2 (02:03→13:09)
--- NOTE | 2019-03-16 02:09 | HP ---
CHIEF COMPLAINT: burning on urination PCP: HISTORY OF PRESENT ILLNESS: Patient is a 49 y/o female with a history of vertigo, HTN, DM, asthma, and frequent UTI's who presents for pain with urination. On March 01 patient had similar complaints and her PCP prescribed her Bactrim. She finished the course but the pain did not resolve. From our ED she received a second course of BActrim, after 5 days it did not get better so she returned. She still has dysuria, frequent urination, left back pain, and chills. Typically her PCP gives her bactrim and her symptoms resolve. She was on fluconazole for treatment of migraines after having meningitis in 2005. She stopped taking the medication 8 months ago and reports she has some migraines. She has not taken her home medications in the last two days because she reports her sleep schedule is off from urinating constantly. Patient denies any discharge, hematuria, nausea, headaches, chest pain, or shortness of breath. Patient is not sexually active and petit snot currently work. Patient was in the process of getting a referral to urology from her PCP but was just trying to find one that takes her insurance. ER course was notable for: (1) (2) (3) Recent Travel: PAST MEDICAL HISTORY: vertigo, HTN, DM, asthma, and frequent UTI's PAST SURGICAL HISTORY: per patient none, per hx breast augmentation Social History: Smoking: denies Alcohol: denies Drugs: denies Family History: Allergies Penicillins Allergy (Verified 03/15/19 21:14) HOME MEDICATIONS: Home Medications Medication Instructions Recorded Insulin Aspart [Novolog] 15 units SQ TID 08/11/15 Insulin Glargine,Hum.rec.anlog 35 units SQ HS 08/11/15 [Lantus (10mL VIAL) -] Losartan Potassium [Cozaar -] 50 mg PO DAILY 11/12/15 Meclizine HCl [Antivert -] 25 mg PO TID PRN 11/12/15 Salmeterol/Fluticasone [Advair 1 inh PO BID 07/13/17 100Mcg/50Mcg -] Loperamide HCl/Simethicone 1 each PO BID PRN #8 tablet 07/14/17 [Imodium Multi-Symptom Rel Cplt] Tobramycin 0.3% Ophth Soln [Tobrex 2 drop OS QID #1 drops 04/09/18 Ophthalmic Solution -] REVIEW OF SYSTEMS positive: dysuria, increased frequency, suprapubic pain, L sided back pain, chills denies: fever, headache, hematuria, nausea, discharge, chest pain, shortness of breath PHYSICAL EXAMINATION Vital Signs - 24 hr 03/15/19 21:12 Temperature 97.8 F Pulse Rate 105 H Respiratory 18 Rate Blood Pressure 170/99 O2 Sat by Pulse 95 Oximetry (%) GENERAL: Awake, alert, and fully oriented, in no acute distress. obese, facial hair in distribution of a male HEAD: Normal with no signs of trauma. EYES: Pupils equal, round and reactive to light, extraocular movements intact, EARS, NOSE, THROAT: Moist mucous membranes. LUNGS: Breath sounds equal, clear to auscultation bilaterally. No wheezes, and no crackles. No accessory muscle use. HEART: Regular rate and rhythm, normal S1 and S2 without murmur, rub or gallop. ABDOMEN: Soft,non distended, tenderness suprapubic MUSCULOSKELETAL: left CVA tenderness : did not exam or ask patient, previous CT scan and US show prostate and testicles LOWER EXTREMITIES: 2+ pulses, warm, well-perfused. No calf tenderness. No peripheral edema. NEUROLOGICAL: Cranial nerves II-XII intact. Normal speech. Normal gait. PSYCHIATRIC: Cooperative. Good eye contact. Appropriate mood and affect. SKIN: Warm, dry, normal turgor, no rashes or lesions noted, normal capillary refill. Laboratory Results - last 24 hr 03/15/19 03/15/19 03/15/19 22:50 23:10 23:10 WBC 6.7 RBC 4.70 Hgb 14.0 Hct 41.8 MCV 89.0 MCH 29.9 MCHC 33.6 RDW 13.4 Plt Count 220 MPV 9.5 Absolute Neuts (auto) 3.2 Neutrophils % 48.6 Lymphocytes % 39.0 Monocytes % 8.9 Eosinophils % 2.2 Basophils % 1.3 D Nucleated RBC % 0 Sodium 128 L Potassium 4.3 Chloride 97 L Carbon Dioxide 21 Anion Gap 10 BUN 11 Creatinine 1.3 Est GFR (CKD-EPI)AfAm 56.58 Est GFR (CKD-EPI)NonAf 48.81 Random Glucose 572 H* Calcium 8.9 Total Bilirubin 0.4 AST 37 ALT 56 Alkaline Phosphatase 232 H Total Protein 7.9 Albumin 3.8 Urine Color Yellow Urine Appearance Clear Urine pH 6.0 Ur Specific [place] 1.033 Urine Protein Negative Urine Glucose (UA) 3+ H Urine Ketones Negative Urine Blood 1+ H Urine Nitrite Negative Urine Bilirubin Negative Urine Urobilinogen 0.2 Ur Leukocyte Esterase 1+ H Urine WBC (Auto) 151.1 Urine RBC (Auto) 12.9 U Epithel Cells (Auto) 0.2 Urine Bacteria (Auto) 38.8 Urine HCG, Qual Negative ASSESSMENT/PLAN: Patient is a 49 y/o female with a history of vertigo, HTN, DM, asthma, and frequent UTI's who is admitted for pyelonephritis. #Pyelonephritis - failed two course outpatient abx - UA indicates UTI, with back pain likely pyelonephritis - f/u giancarlo - Aztreonam in ED, will continue, will likely need to consult ID for Aztreonam - f/u [facility] for appropriate outpatient abx - acetaminophen for pain 650 mg q4h, one time dose tramadol #DM - currently uncontrolled, patient has not been taking her medication - 8 units of insulin one time - SS and BGM - 35 units levemir hs, one time 15 units levemir ordered overnight #HTN - losartan 50 mg ordered once - will continue losartan 50 mg daily #asthma - continue advair #DVT ppx - heparin TID FEN - diabetic/ low sodium diet - NS @ 100 overnight, can dc in the morning - hyponatremia corrects to 130 with hyperglycemia Dispo: monitor on med surg Visit type - Emergency Visit Emergency Visit: Yes ED Registration Date: 03/16/19 Care time: The patient presented to the Emergency Department on the above date and was hospitalized for further evaluation of their emergent condition. - New Patient This patient is new to me today: Yes Date on this admission: 03/16/19 - Critical Care Critical Care patient: No
[2019-03-16] MEDS ORDERED: LOSARTAN POTASSIUM 50 MG TABLET (FP) PO ONE (02:11)
[2019-03-16] MEDS ORDERED: traMADol HCL 50 MG TABLET ONE (02:26)
[2019-03-16] MEDS ORDERED: HEPARIN NA (PORCINE) 5,000 UNITS/ML 1ML VIAL ONE (02:26)
[2019-03-16] MEDS ORDERED: INSULIN (NOVOLOG) ASPART 100 UNITS/ML 10ML VIAL ONE ×2 (02:26→20:57)
[2019-03-16] MEDS: SODIUM CHLORIDE 1,000 ML IV SCH (02:38)
[2019-03-16] MEDS ORDERED: INSULIN (LEVEMIR) 100 UNITS/ML UNITS SQ ONE (02:51)
--- NOTE | 2019-03-16 03:11 | PN ---
Teaching Attending Note Name of Resident: Joleen Almanza ATTENDING PHYSICIAN STATEMENT I saw and evaluated the patient. I reviewed the resident's note and discussed the case with the resident. I agree with the resident's findings and plan as documented. SUBJECTIVE: This is a 49 year old woman with a history of HTN, type 2 DM, asthma , vertigo, recurrent UTIs who comes to the ED complaining of suprapubic pressure , left flank pain, painful and frequent urination, and chills. Her symptoms started about 2 weeks ago. She was prescribed Bactrim and completed the course with no improvement. She was then prescribed a second course of Bactrim which she also took with no improvement. She denies hematuria, fever. OBJECTIVE: Vital Signs Period Temp Pulse Resp BP Sys/Oliver Pulse Ox Last 24 Hr 97.8 F 100-105 18-18 163-170/97-99 95-96 HEART: S1S2, tachycardic LUNGS: Clear ABDOMEN: Obese, soft, (+) suprapubic tenderness, non-distended, normal BS EXTREMITIES: No edema Laboratory Results - last 24 hr 03/15/19 03/15/19 03/15/19 22:50 23:10 23:10 WBC 6.7 RBC 4.70 Hgb 14.0 Hct 41.8 MCV 89.0 MCH 29.9 MCHC 33.6 RDW 13.4 Plt Count 220 MPV 9.5 Absolute Neuts (auto) 3.2 Neutrophils % 48.6 Lymphocytes % 39.0 Monocytes % 8.9 Eosinophils % 2.2 Basophils % 1.3 D Nucleated RBC % 0 Sodium 128 L Potassium 4.3 Chloride 97 L Carbon Dioxide 21 Anion Gap 10 BUN 11 Creatinine 1.3 Est GFR (CKD-EPI)AfAm 56.58 Est GFR (CKD-EPI)NonAf 48.81 Random Glucose 572 H* Calcium 8.9 Total Bilirubin 0.4 AST 37 ALT 56 Alkaline Phosphatase 232 H Total Protein 7.9 Albumin 3.8 Urine Color Yellow Urine Appearance Clear Urine pH 6.0 Ur Specific [place] 1.033 Urine Protein Negative Urine Glucose (UA) 3+ H Urine Ketones Negative Urine Blood 1+ H Urine Nitrite Negative Urine Bilirubin Negative Urine Urobilinogen 0.2 Ur Leukocyte Esterase 1+ H Urine WBC (Auto) 151.1 Urine RBC (Auto) 12.9 U Epithel Cells (Auto) 0.2 Urine Bacteria (Auto) 38.8 Urine HCG, Qual Negative 03/16/19 00:55 WBC RBC Hgb Hct MCV MCH MCHC RDW Plt Count MPV Absolute Neuts (auto) Neutrophils % Lymphocytes % Monocytes % Eosinophils % Basophils % Nucleated RBC % Sodium 130 L Potassium 4.3 Chloride 100 Carbon Dioxide 21 Anion Gap 10 BUN 12 Creatinine 1.3 Est GFR (CKD-EPI)AfAm 56.58 Est GFR (CKD-EPI)NonAf 48.81 Random Glucose 523 H* Calcium 9.2 Total Bilirubin AST ALT Alkaline Phosphatase Total Protein Albumin Urine Color Urine Appearance Urine pH Ur Specific [place] Urine Protein Urine Glucose (UA) Urine Ketones Urine Blood Urine Nitrite Urine Bilirubin Urine Urobilinogen Ur Leukocyte Esterase Urine WBC (Auto) Urine RBC (Auto) U Epithel Cells (Auto) Urine Bacteria (Auto) Urine HCG, Qual Home Medications Medication Instructions Recorded Insulin Aspart [Novolog] 15 units SQ TID 08/11/15 Insulin Glargine,Hum.rec.anlog 35 units SQ HS 08/11/15 [Lantus (10mL VIAL) -] Losartan Potassium [Cozaar -] 50 mg PO DAILY 11/12/15 Meclizine HCl [Antivert -] 25 mg PO TID PRN 11/12/15 Salmeterol/Fluticasone [Advair 1 inh PO BID 07/13/17 100Mcg/50Mcg -] Tobramycin 0.3% Ophth Soln [Tobrex 2 drop OS QID #1 drops 04/09/18 Ophthalmic Solution -] ASSESSMENT AND PLAN: This is a 49 year old woman with a history of HTN, type 2 DM, asthma, vertigo, recurrent UTIs who presented to the ED with dysuria, suprapubic pain, frequent urination, and chills which have persisted despite two courses of Bactrim. 1. UTI, possible pyelonephritis - Failed outpatient treatment with Bactrim - Aztreonam given in ED - will continue - Follow up urine culture 2. Pseudohyponatremia secondary to hyperglycemia - Sodium 130 corrects to 140 3. HTN - Continue Cozaar 4. Type 2 DM, uncontrolled - Continue Lantus - Fingersticks with Novolog sliding scale 5. Morbid obesity with BMI 45.2 6. Asthma - Stable - Continue Advair
[2019-03-16] MEDS: HEPARIN NA (PORCINE) 5,000 UNITS/ML 1ML VIAL SQ SCH ×3 (05:10→21:10)
[2019-03-16] MEDS: INSULIN SLIDING SCALE (NOVOLOG) 1 VIAL SQ SCH ×4 (07:02→21:10)
[2019-03-16 07:03] LABS: BASO % 1.1 % (0-2.0); EOS % 3.5 % (0-4.5); HEMATOCRIT 39.7 % (32.4-45.2); HEMOGLOBIN 13.5 GM/dL (10.7-15.3); LYMPH % 41.3 % (8-40); MEAN CELL VOLUME 88.2 fl (80-96); MEAN PLT VOLUME 9.5 fl (7.5-11.1); MONO % 10.2 % (3.8-10.2); NEUT % 43.9 % (42.8-82.8); PLATELET COUNT 226 K/MM3 (134-434); RDW 13.2 % (11.6-15.6)
[2019-03-16 07:48] LABS: ALBUMIN 3.5 g/dl (3.4-5.0); BILIRUBIN,TOTAL 0.5 mg/dL (0.2-1); CREATININE 1.1 mg/dL (0.55-1.3); MAGNESIUM 2.4 mg/dL (1.8-2.4); PHOSPHOROUS 2.8 mg/dL (2.5-4.9); POTASSIUM 4.5 mmol/L (3.5-5.1); TOT PROT 7.4 g/dl (6.4-8.2)
--- NOTE | 2019-03-16 08:17 | PN ---
Physical Exam: SUBJECTIVE: Patient seen and examined at bedside no acute events overnight patient states her pain is feeling better though she is still hvaing some slight nausea and pain; denies CP./SOB?N/V OBJECTIVE: Vital Signs Period Temp Pulse Resp BP Sys/Oliver Pulse Ox Last 24 Hr 97.8 F-98 F 79-105 18-22 143-170/90-102 95-98 GENERAL: The patient is awake, alert, and fully oriented, in no acute distress. EYES:PEERLA: EOMI no scleral icterus NECK: no JVD: no lymphadenopathy. LUNGS: CTA B/L; no rales, rhonchi or wheezing HEART: Regular rate and rhythm, S1, S2 without murmur, rub or gallop. ABDOMEN: Soft, suprapubic tenderness, nondistended, normoactive bowel sounds, no guarding, no rebound, no hepatosplenomegaly, no masses. L sided CVA tenderness EXTREMITIES: 2+ pulses, warm, well-perfused, no edema. PSYCH: Normal mood, normal affect. SKIN: Warm, dry, normal turgor, no rashes or lesions noted Laboratory Results - last 24 hr 03/15/19 03/15/19 03/15/19 22:50 23:10 23:10 WBC 6.7 RBC 4.70 Hgb 14.0 Hct 41.8 MCV 89.0 MCH 29.9 MCHC 33.6 RDW 13.4 Plt Count 220 MPV 9.5 Absolute Neuts (auto) 3.2 Neutrophils % 48.6 Lymphocytes % 39.0 Monocytes % 8.9 Eosinophils % 2.2 Basophils % 1.3 D Nucleated RBC % 0 Sodium 128 L Potassium 4.3 Chloride 97 L Carbon Dioxide 21 Anion Gap 10 BUN 11 Creatinine 1.3 Est GFR (CKD-EPI)AfAm 56.58 Est GFR (CKD-EPI)NonAf 48.81 POC Glucometer Random Glucose 572 H* Calcium 8.9 Phosphorus Magnesium Total Bilirubin 0.4 AST 37 ALT 56 Alkaline Phosphatase 232 H Total Protein 7.9 Albumin 3.8 Urine Color Yellow Urine Appearance Clear Urine pH 6.0 Ur Specific [place] 1.033 Urine Protein Negative Urine Glucose (UA) 3+ H Urine Ketones Negative Urine Blood 1+ H Urine Nitrite Negative Urine Bilirubin Negative Urine Urobilinogen 0.2 Ur Leukocyte Esterase 1+ H Urine WBC (Auto) 151.1 Urine RBC (Auto) 12.9 U Epithel Cells (Auto) 0.2 Urine Bacteria (Auto) 38.8 Urine HCG, Qual Negative 03/16/19 03/16/19 03/16/19 00:55 03:28 06:15 WBC 6.0 RBC 4.50 Hgb 13.5 Hct 39.7 MCV 88.2 MCH 30.0 MCHC 34.0 RDW 13.2 Plt Count 226 MPV 9.5 Absolute Neuts (auto) 2.6 Neutrophils % 43.9 Lymphocytes % 41.3 H Monocytes % 10.2 Eosinophils % 3.5 Basophils % 1.1 Nucleated RBC % 0 Sodium 130 L Potassium 4.3 Chloride 100 Carbon Dioxide 21 Anion Gap 10 BUN 12 Creatinine 1.3 Est GFR (CKD-EPI)AfAm 56.58 Est GFR (CKD-EPI)NonAf 48.81 POC Glucometer 388 Random Glucose 523 H* Calcium 9.2 Phosphorus Magnesium Total Bilirubin AST ALT Alkaline Phosphatase Total Protein Albumin Urine Color Urine Appearance Urine pH Ur Specific [place] Urine Protein Urine Glucose (UA) Urine Ketones Urine Blood Urine Nitrite Urine Bilirubin Urine Urobilinogen Ur Leukocyte Esterase Urine WBC (Auto) Urine RBC (Auto) U Epithel Cells (Auto) Urine Bacteria (Auto) Urine HCG, Qual 03/16/19 06:15 WBC RBC Hgb Hct MCV MCH MCHC RDW Plt Count MPV Absolute Neuts (auto) Neutrophils % Lymphocytes % Monocytes % Eosinophils % Basophils % Nucleated RBC % Sodium 134 L Potassium 4.5 Chloride 103 Carbon Dioxide 25 Anion Gap 6 L BUN 9 Creatinine 1.1 Est GFR (CKD-EPI)AfAm 69.24 Est GFR (CKD-EPI)NonAf 59.74 POC Glucometer Random Glucose 291 H Calcium 9.0 Phosphorus 2.8 Magnesium 2.4 Total Bilirubin 0.5 AST 26 ALT 49 Alkaline Phosphatase 176 H Total Protein 7.4 Albumin 3.5 Urine Color Urine Appearance Urine pH Ur Specific [place] Urine Protein Urine Glucose (UA) Urine Ketones Urine Blood Urine Nitrite Urine Bilirubin Urine Urobilinogen Ur Leukocyte Esterase Urine WBC (Auto) Urine RBC (Auto) U Epithel Cells (Auto) Urine Bacteria (Auto) Urine HCG, Qual Active Medications Generic Name Dose Route Start Last Admin Trade Name Freq PRN Reason Stop Dose Admin Acetaminophen 650 mg 03/16/19 02:00 Tylenol - PO Q4H PRN PAIN LEVEL 6-10 Heparin Sodium (Porcine) 5,000 unit 03/16/19 06:00 03/16/19 05:10 Heparin - SQ Not Given TID KRISH Aztreonam 1 gm/ Dextrose 50 mls @ 100 mls/hr 03/16/19 10:00 IVPB 03/16/19 18:29 Q8H-IV KRISH Protocol Sodium Chloride 1,000 mls @ 100 mls/hr 03/16/19 02:00 03/16/19 02:38 Normal Saline - IV 100 mls/hr ASDIR KRISH Administration Aztreonam 1 gm/ Dextrose 50 mls @ 100 mls/hr 03/17/19 02:00 IVPB Q8H-IV KRISH Protocol Insulin Aspart 1 vial 03/16/19 07:00 03/16/19 07:02 Novolog Vial Sliding Scale - SQ 6 units ACHS KRISH Administration Protocol Insulin Detemir 35 units 03/16/19 22:00 Levemir Vial SQ HS KRISH Losartan Potassium 50 mg 03/16/19 10:00 Cozaar - PO DAILY KRISH Fluticasone/Salmeterol 1 puff 03/16/19 10:00 Advair 100mcg/50mcg - IH BID KRISH ASSESSMENT/PLAN: Patient is a 49 y/o female with a history of vertigo, HTN, DM, asthma, and frequent UTI's who is admitted for pyelonephritis. #Pyelonephritis - failed two course outpatient abx - U/A: 1+leuk esterase; 151 WBC - f/u kidney US - given aztreonam given penicillin allergy - f/u UCX - acetaminophen for pain 650 mg q4h, one time dose tramadol #DM - currently uncontrolled, patient has not been taking her medication - 8 units of insulin one time - SS and BGM - 35 units levemir hs, one time 15 units levemir ordered overnight #HTN - losartan 50 mg ordered once - will continue losartan 50 mg daily #asthma - continue advair #DVT ppx - heparin TID FEN - diabetic/ low sodium diet - NS @ 100 overnight, can dc in the morning - hyponatremia corrects to 130 with hyperglycemia Problem List - Problems (1) Pyelonephritis Code(s): N12 - TUBULO-INTERSTITIAL NEPHRITIS, NOT SPCF ACUTE OR CHRONIC (2) Insulin dependent diabetes mellitus Code(s): E11.9 - TYPE 2 DIABETES MELLITUS WITHOUT COMPLICATIONS; Z79.4 - CREDIT OFFICER (CURRENT) USE OF INSULIN Visit type - Emergency Visit Emergency Visit: Yes ED Registration Date: 03/16/19 Care time: The patient presented to the Emergency Department on the above date and was hospitalized for further evaluation of their emergent condition. - New Patient This patient is new to me today: Yes Date on this admission: 03/16/19 - Critical Care Critical Care patient: No
[2019-03-16] MEDS ORDERED: DEXTROSE 5%-WATER - 50 ML IVPB ONE (09:17)
[2019-03-16] MEDS ORDERED: AZTREONAM 1 GM in DEXTROSE 5%-WATER - 50 ML IVPB SCH (10:00)
[2019-03-16] MEDS: FLUTICASONE/SALMETEROL 100 MCG/50 MCG DISKUS IH SCH ×2 (10:07→21:09)
[2019-03-16] MEDS: LOSARTAN POTASSIUM 50 MG TABLET (FP) PO SCH (10:08)
[2019-03-16] MEDS: ACETAMINOPHEN 325 MG TABLET (FP) PO PRN (11:15)
--- NOTE | 2019-03-16 12:53 | EKG ---
Test Reason : Blood Pressure : / mmHG Vent. Rate : 087 BPM Atrial Rate : 087 BPM P-R Int : 146 ms QRS Dur : 074 ms QT Int : 382 ms P-R-T Axes : 043 -05 010 degrees QTc Int : 459 ms POOR DATA QUALITY, INTERPRETATION MAY BE ADVERSELY AFFECTED NORMAL SINUS RHYTHM NORMAL ECG WHEN COMPARED WITH ECG OF 21-JUL-2016 03:50, NO SIGNIFICANT CHANGE WAS FOUND Confirmed by VICTOR MANUEL GODOY, SOFIA ([id number]) on 03/16/2019 12:53:22 PM Referred By: Confirmed By:SOFIA RUSH MD
--- NOTE | 2019-03-16 14:22 | PN ---
Teaching Attending Note Name of Resident: Honey Beard ATTENDING PHYSICIAN STATEMENT I saw and evaluated the patient. I reviewed the resident's note and discussed the case with the resident. I agree with the resident's findings and plan as documented. SUBJECTIVE:continues to have L flank pain, fevers and chills. was on bactrim 2x in the past month (1st course 7D 2nd course 5D). states she is always given bactrim for UTI which she has frequently. denies CP, N/V/C/D. OBJECTIVE: Last Vital Signs Temp Pulse Resp BP Pulse Ox 98.1 F 87 20 145/96 97 03/16/19 13:31 03/16/19 13:31 03/16/19 13:31 03/16/19 13:03/16/19 09:00 General NAD CV S1 S2 RRR no murmur/rub/gallop Lungs CTA B/L no wheezing/rales/rhonchi Abdomen soft NT/ND + L CVA tenderness ASSESSMENT AND PLAN: 49yo F wtih PMH HTN, DM, asthma and frequent UTI presented to the ER with suprapubic tenderness/fever/chills and urinary frequency has suspected pyleonpehritis which failed outpatient therapy 1. Complicated UTI with suspected pylonephritis- afebrile with no leukocytosis. Ucx here in the past growing Ecoli resistant to bactrim. on azactam (PCN allergy noted). check renal u/s. f/u Cx 2. Pseudohyponatremia- corrected for hyperglycemia 3. Hyperglycemia- has not taken insulin for the past 3 days. will re-start. titrate as needed to optimize control 4. HTN- above goal. possible due to pain. will adjust as needed to optimize control 5. asthma- no signs of acute exacerbation 6. DVT ppx- hep sq
--- NOTE | 2019-03-16 14:47 | PN ---
Progress Note (short form) - Note Progress Note: ID CONSULT DICTATED UTI/ PYELONEPHRITIS HX MAJOR PCN ALLERGY DIABETES MELLITUS AWAIT C/S CONTINUE AZTREONAM
--- NOTE | 2019-03-16 15:19 | CONS ---
DATE OF CONSULTATION: 03/16/2019 HISTORY: The patient is a 49-year-old diabetic female with a history of recurrent urinary tract infections, now evaluated for pyelonephritis. She presented to the hospital on March 15, 2019, with complaints of lower abdominal pain, dysuria, and urinary frequency. She also complains of suprapubic and left flank pain. Patient on admission was found to have pyuria and a markedly elevated blood sugar. She was empirically treated with Azactam. Cultures are pending. Prior to admission, she had been diagnosed with a urinary tract infection and had been treated with 2 courses of Bactrim. Previous cultures from 2016 and 2017 revealed E. coli in the urine culture which was resistant to Bactrim, sensitive to quinolones. PAST MEDICAL HISTORY: Positive for diabetes mellitus, hypertension, asthma, frequent urinary tract infections. ALLERGIES: PENICILLIN. Patient reports that her throat closed when she received penicillin at age 29. MEDICATIONS: Include Tylenol, aztreonam, insulin, losartan, tramadol. SOCIAL HISTORY: Lives at home in the community. Nonsmoker, nondrinker. LABORATORY DATA: Her white count is 6.0, hematocrit 39.7, platelet count 226. BUN 9, creatinine 1.1. Urinalysis: 151 white cells. Cultures pending. test negative. Renal sonogram negative. PHYSICAL EXAMINATION: General: Patient is awake and alert, morbidly obese. Vital Signs: Temperature 98.1, blood pressure 145/96, pulse 87, regular. Respirations 20 per minute. HEENT: Sclerae are anicteric. Cardiovascular: Heart sounds S1, S2. Lungs: Clear. Abdomen: Obese, soft. No CVA tenderness. No suprapubic tenderness. Extremities: Edema 1+. IMPRESSION: 1. Urinary tract infection/pyelonephritis. 2. History of major penicillin allergy. 3. Diabetes mellitus. Await cultures, continue Azactam. Previous urine isolates susceptible to Azactam. Patient has been tolerating the medication without adverse reaction. Further recommendations pending cultures. Thank you for the kind referral. SHANNEN DILLARD M.D. [id number]
[2019-03-16] MEDS: AZTREONAM 2 GM in DEXTROSE 5%-WATER 100 ML IVPB SCH (17:36)
[2019-03-16] MEDS: INSULIN (LEVEMIR) 100 UNITS/ML UNITS SQ SCH (21:10)
[2019-03-17] MEDS: SODIUM CHLORIDE 1,000 ML IV SCH ×2 (01:28→09:33)
[2019-03-17] MEDS: AZTREONAM 2 GM in DEXTROSE 5%-WATER 100 ML IVPB SCH ×3 (01:29→17:16)
[2019-03-17] MEDS ORDERED: AZTREONAM 1 GM in DEXTROSE 5%-WATER - 50 ML IVPB SCH (02:00)
[2019-03-17] MEDS: ACETAMINOPHEN 325 MG TABLET (FP) PO PRN (04:06)
[2019-03-17] MEDS ORDERED: ACETAMINOPHEN 325 MG TABLET (FP) PO ONE (06:11)
[2019-03-17] MEDS: HEPARIN NA (PORCINE) 5,000 UNITS/ML 1ML VIAL SQ SCH ×3 (06:39→22:17)
[2019-03-17] MEDS: INSULIN SLIDING SCALE (NOVOLOG) 1 VIAL SQ SCH ×4 (06:40→22:17)
[2019-03-17 07:17] LABS: HEMATOCRIT 40.1 % (32.4-45.2); HEMOGLOBIN 13.8 GM/dL (10.7-15.3); MCH 30.3 pg (25.7-33.7); MCHC 34.5 g/dl (32.0-36.0); MEAN CELL VOLUME 87.6 fl (80-96); MEAN PLT VOLUME 9.6 fl (7.5-11.1); PLATELET COUNT 227 K/MM3 (134-434); RBC 4.57 M/mm3 (3.60-5.2); RDW 13.4 % (11.6-15.6); WHITE BLOOD COUNT 5.5 K/mm3 (4.0-10.0)
[2019-03-17 07:32] LABS: CALCIUM 8.7 mg/dL (8.5-10.1); CREATININE 0.8 mg/dL (0.55-1.3); MAGNESIUM 2.1 mg/dL (1.8-2.4); PHOSPHOROUS 3.3 mg/dL (2.5-4.9)
--- NOTE | 2019-03-17 08:01 | PN ---
Physical Exam: SUBJECTIVE: Patient seen and examined at bedside- no acute events overnight; patient states that she is feeling better though still having some suprapubic tenderness however is no longer having flank pain; nor is she having hematuria or dysuria; she denies CP/SOB/N/V OBJECTIVE: Vital Signs Period Temp Pulse Resp BP Sys/Oliver Pulse Ox Last 24 Hr 97.5 F-99.1 F 71-100 18-20 131-155/77-105 97-97 GENERAL: The patient is awake, alert, and fully oriented, in no acute distress. EYES: PEERLA: EOMI no scleral icterus NECK: no JVD; no lymphadenopathy LUNGS: CTA B/L; no rales, rhonchi or wheezing HEART: Regular rate and rhythm, S1, S2 without murmur, rub or gallop. ABDOMEN: Soft, slight suprapubic tenderness; no CVA tenderness. EXTREMITIES: 2+ pulses, warm, well-perfused, no edema. PSYCH: Normal mood, normal affect. SKIN: Warm, dry, normal turgor, no rashes or lesions noted Laboratory Results - last 24 hr 03/16/19 03/16/19 03/16/19 06:15 07:01 11:18 WBC RBC Hgb Hct MCV MCH MCHC RDW Plt Count MPV Sodium Potassium Chloride Carbon Dioxide Anion Gap BUN Creatinine Est GFR (CKD-EPI)AfAm Est GFR (CKD-EPI)NonAf POC Glucometer 270 273 Random Glucose Hemoglobin A1c % 8.8 H Calcium Phosphorus Magnesium 03/16/19 03/16/19 03/17/19 16:50 21:08 06:30 WBC 5.5 RBC 4.57 Hgb 13.8 Hct 40.1 MCV 87.6 MCH 30.3 MCHC 34.5 RDW 13.4 Plt Count 227 MPV 9.6 Sodium Potassium Chloride Carbon Dioxide Anion Gap BUN Creatinine Est GFR (CKD-EPI)AfAm Est GFR (CKD-EPI)NonAf POC Glucometer 222 260 Random Glucose Hemoglobin A1c % Calcium Phosphorus Magnesium 03/17/19 06:30 WBC RBC Hgb Hct MCV MCH MCHC RDW Plt Count MPV Sodium 137 Potassium 4.0 Chloride 108 H Carbon Dioxide 21 Anion Gap 9 BUN 8 Creatinine 0.8 Est GFR (CKD-EPI)AfAm 101.75 Est GFR (CKD-EPI)NonAf 87.79 POC Glucometer Random Glucose 187 H Hemoglobin A1c % Calcium 8.7 Phosphorus 3.3 Magnesium 2.1 Active Medications Generic Name Dose Route Start Last Admin Trade Name Jmq PRN Reason Stop Dose Admin Acetaminophen 650 mg 03/16/19 02:00 03/17/19 04:06 Tylenol - PO 650 mg Q4H PRN Administration PAIN LEVEL 6-10 Heparin Sodium (Porcine) 5,000 unit 03/16/19 06:00 03/17/19 06:39 Heparin - SQ 5,000 unit TID KRISH Administration Sodium Chloride 1,000 mls @ 100 mls/hr 03/16/19 02:00 03/17/19 01:28 Normal Saline - IV 100 mls/hr ASDIR KRISH Administration Aztreonam 2 gm/ Dextrose 100 mls @ 100 mls/hr 03/16/19 18:00 03/17/19 01:29 IVPB 100 mls/hr Q8H-IV KRISH Administration Protocol Insulin Aspart 1 vial 03/16/19 07:00 03/17/19 06:40 Novolog Vial Sliding Scale - SQ 4 units ACHS KRISH Administration Protocol Insulin Detemir 35 units 03/16/19 22:00 03/16/19 21:10 Levemir Vial SQ 35 units HS KRISH Administration Losartan Potassium 50 mg 03/16/19 10:00 03/16/19 10:08 Cozaar - PO 50 mg DAILY KRISH Administration Fluticasone/Salmeterol 1 puff 03/16/19 10:00 03/16/19 21:09 Advair 100mcg/50mcg - IH 1 puff BID KRISH Administration ASSESSMENT/PLAN: Patient is a 49 y/o female with a history of vertigo, HTN, DM, asthma, and frequent UTI's who is admitted for pyelonephritis. #Pyelonephritis - U/A: 1+leuk esterase; 151 WBC - kidney u/s negative -aztreonam day 2 - f/u UCX - acetaminophen for pain 650 mg q4h, one time dose tramadol #DM - SS and BGM - 35 units levemir hs, one time 15 units levemir ordered overnight #HTN - losartan 50 mg ordered once - will continue losartan 50 mg daily #asthma - continue advair #DVT ppx - heparin TID FEN - diabetic/ low sodium diet - not on fluids Problem List - Problems (1) Pyelonephritis Code(s): N12 - TUBULO-INTERSTITIAL NEPHRITIS, NOT SPCF ACUTE OR CHRONIC (2) Insulin dependent diabetes mellitus Code(s): E11.9 - TYPE 2 DIABETES MELLITUS WITHOUT COMPLICATIONS; Z79.4 - PANEL FITTER (CURRENT) USE OF INSULIN Visit type - Emergency Visit Emergency Visit: Yes ED Registration Date: 03/16/19 Care time: The patient presented to the Emergency Department on the above date and was hospitalized for further evaluation of their emergent condition. - New Patient This patient is new to me today: No - Critical Care Critical Care patient: No
[2019-03-17] MEDS ORDERED: traMADol HCL 50 MG TABLET PO ONE (08:36)
[2019-03-17] MEDS: LOSARTAN POTASSIUM 50 MG TABLET (FP) PO SCH (09:32)
[2019-03-17] MEDS: FLUTICASONE/SALMETEROL 100 MCG/50 MCG DISKUS IH SCH ×2 (09:33→22:17)
[2019-03-17] MEDS ORDERED: LOSARTAN POTASSIUM 50 MG TABLET (FP) PO ONE (11:55)
--- NOTE | 2019-03-17 11:56 | PN ---
Teaching Attending Note Name of Resident: Honey Beard ATTENDING PHYSICIAN STATEMENT I saw and evaluated the patient. I reviewed the resident's note and discussed the case with the resident. I agree with the resident's findings and plan as documented. SUBJECTIVE:continues to have suprapubic pain. CVA tenderness, N/V has all resolved. denies Cp, SOB,f ever, chills, N/V/C/D OBJECTIVE: Last Vital Signs Temp Pulse Resp BP Pulse Ox 98.3 F 86 20 153/91 99 03/17/19 09:30 03/17/19 09:30 03/17/19 09:30 03/17/19 09:30 03/17/19 09:00 General NAD CV S1 S2 RRR no murmur/rub/gallop Lungs CTA B/L no wheezing/rales/rhonchi Abdomen soft NT/ND + suprapubic tenderness ASSESSMENT AND PLAN: 49yo F wtih PMH HTN, DM, asthma and frequent UTI presented to the ER with suprapubic tenderness/fever/chills and urinary frequency has suspected pyleonpehritis which failed outpatient therapy 1. Complicated UTI with suspected pylonephritis- afebrile with no leukocytosis. clinically improved. on azactam day 2. f/u Cx. can d/c IVF. renal u/s negative. ID on board. 2. Pseudohyponatremia- corrected for hyperglycemia 3. Hyperglycemia- has not taken insulin for the past 3 days. re-started yesterday. titrate as needed to optimize control 4. HTN- above goal. increase cozaar to 100mg. titrate to optimize control 5. asthma- no signs of acute exacerbation 6. DVT ppx- hep sq 7. anticipate d/c in 24H once Cx are finalized pending susceptibility to something po.
--- NOTE | 2019-03-17 13:52 | PN ---
Progress Note, Physician History of Present Illness: SEATED IN BED FEELING BETTER C/O MILD SUPRAPUBIC DISCOMFORT NO C/O DYSURIA NO FLANK PAIN NO C/O F/C TOLERATING AZTREONAM AFEBRILE WBC WNL BC (-) URINE C/S LF - Current Medication List Current Medications: Active Medications Acetaminophen (Tylenol -) 650 mg PO Q4H PRN PRN Reason: PAIN LEVEL 6-10 Last Admin: 03/17/19 04:06 Dose: 650 mg Heparin Sodium (Porcine) (Heparin -) 5,000 unit SQ TID KRISH Last Admin: 03/17/19 06:39 Dose: 5,000 unit Aztreonam 2 gm/ Dextrose 100 mls @ 100 mls/hr IVPB Q8H-IV KRISH; Protocol Last Admin: 03/17/19 09:32 Dose: 100 mls/hr Insulin Aspart (Novolog Vial Sliding Scale -) 1 vial SQ ACHS KRISH; Protocol Last Admin: 03/17/19 12:17 Dose: 4 units Insulin Detemir (Levemir Vial) 35 units SQ HS KRISH Last Admin: 03/16/19 21:10 Dose: 35 units Losartan Potassium (Cozaar -) 100 mg PO DAILY KRISH Fluticasone/Salmeterol (Advair 100mcg/50mcg -) 1 puff IH BID KRISH Last Admin: 03/17/19 09:33 Dose: 1 puff - Objective Vital Signs: Vital Signs Temperature 98.3 F 03/17/19 09:30 Pulse Rate 86 03/17/19 09:30 Respiratory Rate 20 03/17/19 12:20 Blood Pressure 156/99 03/17/19 12:20 O2 Sat by Pulse Oximetry (%) 99 03/17/19 09:00 Constitutional: Yes: No Distress, Obese Cardiovascular: Yes: Regular Rate and Rhythm, S1, S2 Respiratory: Yes: CTA Bilaterally Gastrointestinal: Yes: Normal Bowel Sounds, Soft. No: Tenderness Genitourinary: No: CVA Tenderness - Left, CVA Tenderness - Right Labs: CBC, BMP 03/17/19 06:30 03/17/19 06:30 Assessment/Plan UTI/ PROBABLE PYELONEPHRITIS HX MAJOR PCN ALLERGY DIABETES MELLITUS MAY SUBSTITUTE PO LEVAQUIN 750MG QD ADDITIONAL 7D
[2019-03-17 16:52] VITALS: BMI 45.1
[2019-03-17] MEDS ORDERED: INSULIN (NOVOLOG) ASPART 100 UNITS/ML 10ML VIAL ONE (21:13)
[2019-03-17] MEDS: INSULIN (LEVEMIR) 100 UNITS/ML UNITS SQ SCH (22:16)
[2019-03-18] MEDS ORDERED: PT OWN MED DRAWER 7, Y5N ONE ×2 (01:24→08:56)
[2019-03-18] MEDS: AZTREONAM 2 GM in DEXTROSE 5%-WATER 100 ML IVPB SCH ×2 (01:45→09:19)
[2019-03-18] MEDS: HEPARIN NA (PORCINE) 5,000 UNITS/ML 1ML VIAL SQ SCH (05:49)
[2019-03-18] MEDS: INSULIN SLIDING SCALE (NOVOLOG) 1 VIAL SQ SCH (06:02)
[2019-03-18] MEDS: ACETAMINOPHEN 325 MG TABLET (FP) PO PRN (06:41)
[2019-03-18] MEDS ORDERED: INSULIN (NOVOLOG) ASPART 100 UNITS/ML 10ML VIAL ONE (06:55)
[2019-03-18] MEDS ORDERED: INSULIN (LEVEMIR) 100 UNITS/ML UNITS SQ ONE (06:55)
--- NOTE | 2019-03-18 07:30 | DS ---
Physical Exam: SUBJECTIVE: Patient seen and examined. asymptomatic. pain has resolved. deneis Cp, SOB, fever, chills, N/V/C/D OBJECTIVE: Vital Signs Period Temp Pulse Resp BP Sys/Oliver Pulse Ox Last 24 Hr 97.5 F-99.0 F 81-96 18-22 134-156/91-99 98-99 PHYSICAL EXAM GENERAL: The patient is awake, alert, and fully oriented, in no acute distress. HEAD: Normal with no signs of trauma. EYES: PERRL, extraocular movements intact, sclera anicteric, conjunctiva clear. ENT: Ears normal, nares patent, oropharynx clear without exudates, moist mucous membranes. NECK: Trachea midline, full range of motion, supple. LUNGS: Breath sounds equal, clear to auscultation bilaterally, no wheezes, no crackles, no accessory muscle use. HEART: Regular rate and rhythm, S1, S2 without murmur, rub or gallop. ABDOMEN: Soft, nontender, nondistended, normoactive bowel sounds, no guarding, no rebound, no hepatosplenomegaly, no masses. obese EXTREMITIES: 2+ pulses, warm, well-perfused, no edema. NEUROLOGICAL: Cranial nerves II through XII grossly intact. Normal speech, gait not observed. PSYCH: Normal mood, normal affect. SKIN: Warm, dry, normal turgor, no rashes or lesions noted. LABS Laboratory Results - last 24 hr 03/17/19 03/17/19 03/17/19 06:30 06:38 11:20 Sodium 137 Potassium 4.0 Chloride 108 H Carbon Dioxide 21 Anion Gap 9 BUN 8 Creatinine 0.8 Est GFR (CKD-EPI)AfAm 101.75 Est GFR (CKD-EPI)NonAf 87.79 POC Glucometer 207 236 Random Glucose 187 H Calcium 8.7 Phosphorus 3.3 Magnesium 2.1 03/17/19 03/17/19 03/18/19 16:52 22:08 05:53 Sodium Potassium Chloride Carbon Dioxide Anion Gap BUN Creatinine Est GFR (CKD-EPI)AfAm Est GFR (CKD-EPI)NonAf POC Glucometer 238 298 168 Random Glucose Calcium Phosphorus Magnesium HOSPITAL COURSE: Date of Admission:03/16/19 Date of Discharge: 03/18/19 admitting diagnosis: sepsis due to Acute pyelonephritis Pre hospital course Patient is a 49 y/o female with a history of vertigo, HTN, DM, asthma, and frequent UTI's who presents for pain with urination. On March 01 patient had similar complaints and her PCP prescribed her Bactrim. She finished the course but the pain did not resolve. From our ED she received a second course of BActrim, after 5 days it did not get better so she returned. She still has dysuria, frequent urination, left back pain, and chills. Typically her PCP gives her bactrim and her symptoms resolve. She was on fluconazole for treatment of migraines after having meningitis in 2005. She stopped taking the medication 8 months ago and reports she has some migraines. She has not taken her home medications in the last two days because she reports her sleep schedule is off from urinating constantly. Patient denies any discharge, hematuria, nausea, headaches, chest pain, or shortness of breath. Patient is not sexually active and petit snot currently work. Patient was in the process of getting a referral to urology from her PCP but was just trying to find one that takes her insurance. Subsequent hospital course Admitted to medicine for IV abx. started on IVF and aztreonam based on PCN allergy. noted previous Ucx showing bactrim resistance. renal u/s done showing no signs of pyelo but based on clinical presenation was treated as such. clinically improved. losartan increased to 100mg to optimize BP control. d/c on levaquin for additional 7 days Minutes to complete discharge: 40 Discharge Summary Reason For Visit: PYELONEPHRITIS Current Active Problems Pyelonephritis (Acute) Condition: Stable - Instructions Diet, Activity, Other Instructions: You came to the emergency room with complaints of left sided kidney pain and pain with urination. You were found to have a urinary tract and kidney infection. We did an ultrasound of your kidneys and bladder which was normal and we have been treating you with intravenous antibiotics, which you will need to continue for another week. Your symptoms improved and you were stable to be discharged home Please resume all of your home medications in addition: please take the antibiotic Levaquin 750mg daily for 6 more days (starting 03/19) Your losartan was increased to 100mg to optimize your blood pressure Please make sure you are taking your insulin daily as instructed. Document your reading over the next few days and bring it with you when you see your primary care provider. Please follow up with your primary care physician within one week *if you begin to experience pain on urination, blood present in urine, chest pains, shortness of breath, nausea/vomiting please return to the emergency room immediately Disposition: HOME - Home Medications Comprehensive Discharge Medication List: Ambulatory Orders Insulin Aspart [Novolog] 15 units SQ TID 08/11/15 Insulin Glargine,Hum.rec.anlog [Lantus (10mL VIAL) -] 35 units SQ HS 08/11/15 Losartan Potassium [Cozaar -] 50 mg PO DAILY 11/12/15 Meclizine HCl [Antivert -] 25 mg PO TID PRN 11/12/15 Salmeterol/Fluticasone [Advair 100Mcg/50Mcg -] 1 inh PO BID 07/13/17 Tobramycin 0.3% Ophth Soln [Tobrex Ophthalmic Solution -] 2 drop OS QID #1 drops 04/09/18 levoFLOXacin [Levaquin -] 750 mg PO DAILY #6 tablet 03/17/19 This patient is new to me today: No Emergency Visit: Yes ED Registration Date: 03/16/19 Care time: The patient presented to the Emergency Department on the above date and was hospitalized for further evaluation of their emergent condition. Critical Care patient: No - Discharge Referral Referred to [facility] Med [facility].: No
[2019-03-18 07:34] LABS: HEMATOCRIT 40.3 % (32.4-45.2); HEMOGLOBIN 13.8 GM/dL (10.7-15.3); MCH 30.3 pg (25.7-33.7); MCHC 34.2 g/dl (32.0-36.0); MEAN CELL VOLUME 88.6 fl (80-96); MEAN PLT VOLUME 9.6 fl (7.5-11.1); PLATELET COUNT 217 K/MM3 (134-434); RBC 4.55 M/mm3 (3.60-5.2); RDW 13.4 % (11.6-15.6); WHITE BLOOD COUNT 5.5 K/mm3 (4.0-10.0)
[2019-03-18 07:45] LABS: CREATININE 0.8 mg/dL (0.55-1.3); POTASSIUM 3.6 mmol/L (3.5-5.1)
[2019-03-18] MEDS: FLUTICASONE/SALMETEROL 100 MCG/50 MCG DISKUS IH SCH (09:19)
[2019-03-18] MEDS ORDERED: LOSARTAN POTASSIUM 50 MG TABLET (FP) PO SCH (10:00)
[2019-03-18 10:36] VITALS: BP 152/93; PULSE 92; TEMP 98.5
== END 2019-03-18 11:30 | disposition home or self-care (01) | DRG 463 ==
LOC: JER 21:09 → JERBED 03-16 00:50 → J7W 03-16 03:09
PROVIDERS: ADMIT Internal Medicine; ATTEND Internal Medicine
DX: N10 Acute pyelonephritis (principal); E11.65 Type 2 diabetes mellitus with hyperglycemia; E87.1 Hypo-osmolality and hyponatremia; E66.01 Morbid (severe) obesity due to excess calories; Z68.42 Body mass index [BMI] 45.0-49.9, adult; J45.909 Unspecified asthma, uncomplicated; I10 Essential (primary) hypertension; Z87.440 Personal history of urinary (tract) infections; Z79.4 Long term (current) use of insulin; Z88.0 Allergy status to penicillin
CPT/HCPCS: 36415; 76775-TC; 80048; 80053; 81003; 82962; 83036; 83735; 84100; 84703; 85025; 85027; 87040; 87086; 87186; 93005; 93010; 99283-25; J0131; J1644; J7030